=== PATIENT | male | born 1950 | race Caucasian/White ===

== ENCOUNTER 2017-05-07 00:31 | Emergency (ER) | payer MEDICARE, OTHER ==
[~2017-05-07] VITALS: Ht 170.2 cm; Wt 104.5 kg
[2017-05-07 01:50] LABS: BASO % 0.4 % (0.0-1.0); EOS # 0.1 10^3/uL (0.0-0.50); EOS % 1.9 % (0.0-3.0); IMMATURE GRANULOCYTE % 0.6 % (0-0); LYMPH % 21.8 % (24.0-44.0); MEAN CORPUSCULAR HEMOGLOBIN 30.7 pg (27.0-33.0); MEAN CORPUSCULAR HGB CONC 34.4 g/dl (32.0-36.5); MEAN CORPUSCULAR VOLUME 89.3 fl (80.0-96.0); MONO # 0.5 10^3/uL (0.0-0.8); MONO % 10.3 % (0.0-5.0); NEUTROPHILS # 3.1 10^3/uL (1.8-7.7); PLATELET COUNT, AUTOMATED 138 10^3/uL (150-450); RED CELL DISTRIBUTION WIDTH 13.5 % (11.5-14.5); WHITE BLOOD COUNT 4.8 10^3/uL (4.0-10.0)
[2017-05-07 02:09] LABS: ANION GAP 8 MEQ/L (8-16); BLOOD UREA NITROGEN 22 MG/DL (7-18); CALCIUM LEVEL 9.2 MG/DL (8.8-10.2); CARBON DIOXIDE LEVEL 26 MEQ/L (21-32); CHLORIDE LEVEL 102 MEQ/L (98-107); CREATININE FOR GFR 1.26 MG/DL (0.70-1.30); GLOMERULAR FILTRATION RATE > 60.0 (>49); GLUCOSE, FASTING 301 MG/DL (80-110); POTASSIUM SERUM 3.7 MEQ/L (3.5-5.1); SODIUM LEVEL 136 MEQ/L (136-145)
--- NOTE | 2017-05-07 03:50 | REPUSA ---
CLINICAL HISTORY: Dizziness. TECHNIQUE: Multiple axial brain CT scan sections were obtained from base to vertex without contrast a dministration. COMMENTS: The study shows normal configuration of sella turcica. There are no intra or extra-axial collections. There is no mass effect or midline shift. There is no evidence of hematoma formation. No hydrocephal us is present. No abnormal calcifications are noted. No significant abnormalities are seen either in the posterior fossa or supratentorial compartment. The sinuses and mastoid air cells are patent. IMPRESSION: No evidence of acute intracranial pathology. Thank you for your kind referral of this patient.
[2017-05-07 05:08] VITALS: BP 142/80
--- NOTE | 2017-05-07 08:13 | ECGEPIP ---
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
== END 2017-05-07 05:15 | disposition home or self-care (01) ==
LOC: M ED 00:31
DX: R07.89 Other chest pain (principal); R42 Dizziness and giddiness; I25.10 Atherosclerotic heart disease of native coronary artery without angina pectoris; I25.2 Old myocardial infarction

== ENCOUNTER 2018-05-24 23:01 | Emergency (ER) | payer MEDICARE, OTHER ==
[2018-05-24] MEDS: NS 1,000 ML IV (23:30)
[2018-05-24 23:36] LABS: BASO % 0.4 % (0.0-1.0); EOS # 0.2 10^3/uL (0.0-0.50); EOS % 3.4 % (0.0-3.0); HEMATOCRIT 40.3 % (42.0-52.0); HEMOGLOBIN 13.2 g/dl (13.5-17.5); IMMATURE GRANULOCYTE % 0.8 % (0-3.0); LYMPH % 20.2 % (24.0-44.0); MEAN CORPUSCULAR HEMOGLOBIN 30.6 pg (27.0-33.0); MEAN CORPUSCULAR HGB CONC 32.8 g/dl (32.0-36.5); MEAN CORPUSCULAR VOLUME 93.5 fl (80.0-96.0); MONO # 0.7 10^3/uL (0.0-0.8); MONO % 14.6 % (0.0-5.0); NEUTROPHILS % 60.6 % (36.0-66.0); PLATELET COUNT, AUTOMATED 138 10^3/uL (150-450); RED BLOOD COUNT 4.31 10^6/uL (4.30-6.10); RED CELL DISTRIBUTION WIDTH 13.4 % (11.5-14.5)
[2018-05-24 23:55] LABS: BEDSIDE GLUCOSE 292 MG/DL (80-115)
[2018-05-25] MEDS: dexameTHASONE 20 MG/5 ML VIAL (J1100) IV
[2018-05-25 00:06] LABS: ANION GAP 7 MEQ/L (8-16); BLOOD UREA NITROGEN 27 MG/DL (7-18); CALCIUM LEVEL 8.9 MG/DL (8.8-10.2); CARBON DIOXIDE LEVEL 25 MEQ/L (21-32); CHLORIDE LEVEL 103 MEQ/L (98-107); CPK CREATINE PHOSPHOKINASE 224 U/L (39-308); CREATININE FOR GFR 1.55 MG/DL (0.70-1.30); GLOMERULAR FILTRATION RATE 47.7 (>49); GLUCOSE, FASTING 328 MG/DL (70-100); NT-PRO BNP 1187 PG/ML (<125); POTASSIUM SERUM 4.7 MEQ/L (3.5-5.1); SODIUM LEVEL 135 MEQ/L (136-145); TROPONIN I 0.02 NG/ML (< 0.10)
[2018-05-25] MEDS: HumuLIN R (REGULAR) INSULIN (NovoLIN R) **100U/ML** PER UNIT IV (00:15)
[2018-05-25] MEDS: IPRATROPIUM 0.5MG/ALBUTEROL 2.5MG INH SOL UD 3ML (DUONEB)(J7620) NEB ×2 (00:19→01:03)
[2018-05-25] MEDS: FUROSEMIDE 100 MG/10 ML VIAL (J1940) IV (00:30)
== END 2018-05-25 02:35 | disposition home or self-care (01) ==
LOC: M ED 05-25 02:35
DX: I50.9 Heart failure, unspecified (principal); R94.31 Abnormal electrocardiogram [ECG] [EKG]; I11.0 Hypertensive heart disease with heart failure; I25.10 Atherosclerotic heart disease of native coronary artery without angina pectoris; Z95.1 Presence of aortocoronary bypass graft
CPT/HCPCS: J1100

== ENCOUNTER → 2018-09-13 | Outpatient (REF) | payer MEDICARE ==
[~2018-09-13] MED LIST: LASI40TA9 PO
[2018-09-13 16:41] LABS: BASO % 0.6 % (0.0-1.0); EOS # 0.2 10^3/uL (0.0-0.50); EOS % 2.6 % (0.0-3.0); HEMATOCRIT 46.2 % (42.0-52.0); HEMOGLOBIN 15.6 g/dl (13.5-17.5); LYMPH # 1.1 10^3/uL (1.5-4.5); LYMPH % 17.9 % (24.0-44.0); MEAN CORPUSCULAR HEMOGLOBIN 30.5 pg (27.0-33.0); MEAN CORPUSCULAR HGB CONC 33.8 g/dl (32.0-36.5); MEAN CORPUSCULAR VOLUME 90.2 fl (80.0-96.0); MONO # 0.6 10^3/uL (0.0-0.8); MONO % 9.8 % (0.0-5.0); NEUTROPHILS # 4.3 10^3/uL (1.8-7.7); NEUTROPHILS % 68.5 % (36.0-66.0); PLATELET COUNT, AUTOMATED 156 10^3/uL (150-450); RED BLOOD COUNT 5.12 10^6/uL (4.30-6.10); WHITE BLOOD COUNT 6.3 10^3/uL (4.0-10.0)
[2018-09-13 16:55] LABS: ALBUMIN 4.1 GM/DL (3.2-5.2); CALCIUM LEVEL 9.1 MG/DL (8.8-10.2); CHOLESTEROL RISK RATIO 4.483 (<5); CREATININE FOR GFR 1.53 MG/DL (0.70-1.30); GLOMERULAR FILTRATION RATE 48.4 (>49); POTASSIUM SERUM 4.6 MEQ/L (3.5-5.1); THYROID STIMULATING HORMONE 0.295 uIU/ML (0.358-3.740); TOTAL PROTEIN 7.2 GM/DL (6.4-8.2)
[2018-09-13 17:03] LABS: HEMOGLOBIN A1c 9.2 %
[2018-09-13 17:07] LABS: CREATININE, URINE 95.1 MG/DL; MALB URINE SIEMENS 53.6 MG/L; MAU/CREAT RATIO 56.3 MCG/MG (0.0-30.0)
== END ==
LOC: M SFHCLERA 10:11
PROVIDERS: ATTEND Family Medicine
DX: E11.65 Type 2 diabetes mellitus with hyperglycemia (principal)

== ENCOUNTER → 2018-12-19 | Outpatient (REF) | payer MEDICARE ==
[2018-12-19 12:56] LABS: CALCIUM LEVEL 8.8 MG/DL (8.8-10.2); CREATININE FOR GFR 1.47 MG/DL (0.70-1.30); GLOMERULAR FILTRATION RATE 50.7 (>49); POTASSIUM SERUM 4.3 MEQ/L (3.5-5.1)
== END ==
LOC: M SFHCLERA 10:17
PROVIDERS: ATTEND Family Medicine
DX: E11.65 Type 2 diabetes mellitus with hyperglycemia (principal)

== ENCOUNTER → 2019-04-16 | Outpatient (REF) | payer MEDICARE ==
[2019-04-16 12:25] LABS: CALCIUM LEVEL 8.9 MG/DL (8.8-10.2); CREATININE FOR GFR 1.36 MG/DL (0.70-1.30); GLOMERULAR FILTRATION RATE 55.3 (>49); POTASSIUM SERUM 4.4 MEQ/L (3.5-5.1)
[2019-04-16 13:47] LABS: HEMOGLOBIN A1c 6.4 %
== END ==
LOC: M SFHCLERA 08:00
PROVIDERS: ATTEND Family Medicine
DX: E11.65 Type 2 diabetes mellitus with hyperglycemia (principal)

== ENCOUNTER → 2019-08-05 | Outpatient (REF) | payer MEDICARE ==
[2019-08-05 12:55] LABS: BASO % 0.4 % (0.0-1.0); EOS # 0.3 10^3/uL (0.0-0.5); EOS % 3.9 % (0.0-3.0); HEMATOCRIT 46.5 % (42.0-52.0); HEMOGLOBIN 14.9 g/dl (13.5-17.5); LYMPH # 1.4 10^3/uL (1.5-5.0); LYMPH % 19.6 % (24.0-44.0); MEAN CORPUSCULAR HEMOGLOBIN 28.7 pg (27.0-33.0); MEAN CORPUSCULAR VOLUME 89.4 fl (80.0-96.0); MONO # 0.7 10^3/uL (0.0-0.8); NEUTROPHILS # 4.5 10^3/uL (1.5-8.5); NEUTROPHILS % 64.7 % (36.0-66.0); PLATELET COUNT, AUTOMATED 177 10^3/uL (150-450)
[2019-08-05 13:11] LABS: ALBUMIN 3.7 GM/DL (3.2-5.2); BILIRUBIN,TOTAL 0.8 MG/DL (0.2-1.0); CALCIUM LEVEL 8.6 MG/DL (8.8-10.2); CREATININE FOR GFR 1.41 MG/DL (0.70-1.30); GLOMERULAR FILTRATION RATE 53.1 (>49); POTASSIUM SERUM 4.8 MEQ/L (3.5-5.1); THYROID STIMULATING HORMONE 0.028 uIU/ML (0.358-3.740); TOTAL PROTEIN 6.6 GM/DL (6.4-8.2)
[2019-08-05 13:14] LABS: CREATININE, URINE 90.2 MG/DL; MALB URINE SIEMENS 13.2 MG/L; MAU/CREAT RATIO 14.6 MCG/MG (0.0-30.0)
[2019-08-05 13:27] LABS: HEMOGLOBIN A1c 7.2 %
== END ==
LOC: M SFHCLERA 07:36
PROVIDERS: ATTEND Family Medicine
DX: E11.65 Type 2 diabetes mellitus with hyperglycemia (principal)

== ENCOUNTER 2019-09-03 12:10 | Observation (INO) | payer MEDICARE ==
[~2019-09-03] VITALS: Ht 170.2 cm; Wt 93.3 kg
[2019-09-03] MEDS ORDERED: GLIP5TAB8 PO (12:40)
[2019-09-03] MEDS ORDERED: LANTINJ4 SC (12:40)
[2019-09-03] MEDS ORDERED: NITR0.4S14 SL (12:40)
[2019-09-03] MEDS ORDERED: VALS40TA9 PO (12:40)
[2019-09-03] MEDS ORDERED: ISOS60TA2 PO (12:40)
[2019-09-03] MEDS ORDERED: LEVO175T2 PO (12:40)
[2019-09-03] MEDS ORDERED: ECOT81TA5 PO (12:40)
[2019-09-03 12:41] LABS: BASO % 0.5 % (0.0-1.0); EOS # 0.2 10^3/uL (0.0-0.5); EOS % 2.6 % (0.0-3.0); HEMATOCRIT 46.8 % (42.0-52.0); HEMOGLOBIN 15.8 g/dl (13.5-17.5); LYMPH # 1.2 10^3/uL (1.5-5.0); LYMPH % 15.7 % (24.0-44.0); MEAN CORPUSCULAR HEMOGLOBIN 29.3 pg (27.0-33.0); MEAN CORPUSCULAR HGB CONC 33.8 g/dl (32.0-36.5); MEAN CORPUSCULAR VOLUME 86.8 fl (80.0-96.0); MONO # 0.8 10^3/uL (0.0-0.8); MONO % 10.7 % (0.0-5.0); NEUTROPHILS # 5.1 10^3/uL (1.5-8.5); NEUTROPHILS % 69.7 % (36.0-66.0); PLATELET COUNT, AUTOMATED 168 10^3/uL (150-450); RED BLOOD COUNT 5.39 10^6/uL (4.30-6.10); WHITE BLOOD COUNT 7.3 10^3/uL (4.0-10.0)
[2019-09-03 13:15] LABS: CK-MB VALUE MASS 3.1 NG/ML (<3.6); CREATININE FOR GFR 1.58 MG/DL (0.70-1.30); GLOMERULAR FILTRATION RATE 46.5 (>49); MB/CK RELATIVE INDEX 2.7 (< OR =4); TROPONIN I 0.03 NG/ML (< 0.10)
[2019-09-03] MEDS ORDERED: ASPIRIN 81 MG CHEW TABLET PO ONE (13:45)
--- NOTE | 2019-09-03 13:55 | REP ---
Clinical: Chest pain . Comparison: 11/02/2013 . Findings: The mediastinum and cardiac silhouette are stable and cardiomegaly with sternotomy again noted. The lung gillette are clear without acute consolidation, effusion, or pneumothorax. Skeletal structures are intact. Impression: No acute cardiopulmonary process appreciated. No focal consolidation or effusion. Electronically Signed by Kenton Caceres MD 09/03/2019 01:47 P
[2019-09-03 13:58] LABS: ALBUMIN 4.2 GM/DL (3.2-5.2); BILIRUBIN,DIRECT 0.3 MG/DL (0.0-0.2); BILIRUBIN,TOTAL 1.1 MG/DL (0.2-1.0)
[2019-09-03] MEDS ORDERED: CLOPIDOGREL 300 MG TAB (PLAVIX) PO ONE (15:00)
[2019-09-03] MEDS ORDERED: ENOXAPARIN 30 MG/0.3 ML SYR (J1650) IV ONE (15:00)
[2019-09-03] MEDS ORDERED: ENOXAPARIN 100MG/1ML SYRINGE (J1650) SC SCH (15:00)
[2019-09-03] MEDS ORDERED: ATOR80TA59 PO (15:31)
[2019-09-03] MEDS ORDERED: METO25TA4 PO (15:31)
[2019-09-03] MEDS ORDERED: FURO40TA2 PO (15:31)
[2019-09-03] MEDS ORDERED: INSUHUMDS SC (15:31)
[2019-09-03] MEDS ORDERED: FISH1000 PO (15:31)
[2019-09-03] MEDS ORDERED: LEVO150T42 PO (15:31)
[2019-09-03] MEDS ORDERED: BYDU1INJ SC (15:31)
[2019-09-03 15:34] LABS: CHOLESTEROL RISK RATIO 4.035 (<5)
[2019-09-03 15:48] VITALS: BP 148/88
[2019-09-03] MEDS ORDERED: ENOXAPARIN 30 MG/0.3 ML SYR (J1650) SC ONE (19:00)
[2019-09-03] MEDS ORDERED: ENOXAPARIN 60 MG/0.6 ML SYR (J1650) SC ONE (19:00)
--- NOTE | 2019-09-03 20:28 | ECGEPIP ---
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
[2019-09-03] MEDS ORDERED: ATORVASTATIN 20 MG TAB PO SCH (21:00)
[2019-09-03] MEDS ORDERED: HumaLOG INSULIN (NovoLOG) PER UNIT SC SCH (21:00)
[2019-09-03 22:00] VITALS: BP 107/62
[2019-09-03] MEDS ORDERED: GLUCAGON FOR INJ 1 MG VIAL (J1610) SC PRN (23:00)
[2019-09-03] MEDS ORDERED: GLUCOSE 4 GM CHEW TABLET PO PRN (23:00)
[2019-09-03] MEDS ORDERED: NITROGLYCERIN 0.4 MG SUBL TABLET SL PRN (23:00)
[2019-09-03] MEDS ORDERED: DEXTROSE 50% 50 ML SYRINGE IV PRN (23:00)
[2019-09-03] MEDS: METOPROLOL TART 25 MG TABLET PO SCH (23:24)
--- NOTE | 2019-09-03 23:30 | HPEPDOC ---
General Date of Admission Sep 03, 2019 at 12:11 Date of Service: Sep 03, 2019 Primary Care Physician: HILARIO MITCHELL MD Other Providers Cardiology-Dr. Carter Attending Physician: HILARIO MACIAS DO Chief Complaint The patient is a 69-year-old male admitted with a reason for visit of Abnormal Ekg. Source: Patient Exam Limitations: No limitations History of Present Illness The patient reports that he had an episode of what sounds like unstable angina approximately 10 AM this morning, he did take a single dose of sublingual nitroglycerin which seemed to alleviate his chest pain, however thereafter he developed significant persistent headache, and then nausea, and one episode of vomiting. He has had other episodes of angina in the past for which he has taken nitroglycerin, none of which have caused him to have any of the above-mentioned symptoms, therefore he made the decision to come to the emergency department. Both time he was seen and evaluated in the emergency department essentially all of his symptoms have resolved, and he is feeling significantly better. Of all the investigations conducted in the ED, he only had the singular finding of inverted T waves in the lateral leads of his EKG, which is a new finding when compared to his most recent EKG in [facility] from May 2018. Of note, cardiac profile including troponins was negative. The ED physician discussed th e case with his barber apprentice Dr. Carter who felt that would be appropriate to keep the patient for at least the next 24 hours on telemetry. Home Medications Scheduled Aspirin (Ecotrin) 81 Mg Tablet.dr, 81 MG PO DAILY, (Reported) Atorvastatin Calcium (Atorvastatin Calcium) 80 Mg Tablet, 80 MG PO QHS, (Reported) Exenatide Microspheres (Bydureon) 2 Mg/0.65 Ml Pen.injctr, 2 MG SC QWEEK, (Reported) TAKES EITHER MONDAY OR MONDAY, FORGOT THIS PAST WEEKEND Furosemide (Furosemide) 40 Mg Tablet, 40 MG PO DAILY, (Reported) Glipizide (Glipizide) 5 Mg Tablet, 5 MG PO BID, (Reported) Insulin Glargine,Hum.rec.anlog (Lantus Solostar) 100 Unit/1 Ml Insuln.pen, 40 UNITS SC DAILY, (Reported) Insulin Human Lispro (Humalog) 100 Unit/1 Ml Vial, 1 DOSE SC ACHS, (Reported) PER SLIDING SCALE Isosorbide Mononitrate (Isosorbide Mononitrate ER) 60 Mg Tab.er.24h, 60 MG PO DAILY, (Reported) Levothyroxine Sodium (Levoxyl) 150 Mcg Tablet, 150 MCG PO DAILY, (Reported) Metoprolol Tartrate (Metoprolol Tartrate) 25 Mg Tablet, 25 MG PO BID, (Reported) [place]-3 Fatty Acids/Fish Oil (Fish Oil 1,000 mg Capsule) 1 Each Capsule, 1,000 MG PO DAILY, (Reported) Valsartan (Valsartan) 40 Mg Tablet, 40 MG PO DAILY, (Reported) Scheduled PRN Nitroglycerin (Nitroglycerin) 0.4 Mg Tab.subl, 0.4 MG SL NITRO PRN for CHEST PAIN, (Reported) Allergies Coded Allergies: No Known Allergies (Unverified , 05/07/17) Past Medical History Medical History Diabetes mellitus type 2, on insulin therapy Coronary artery disease status post bypass and stenting Chronic diastolic CHF History of alcoholism, last drink of alcohol 1986 Hypothyroidism Dyslipidemia Essential hypertension History of stable angina pectoris Surgical History Cholecystectomy Multiple heart catheterizations Angioplasty 1986 Cardiac bypass 1999 Coronary artery stent in 2009 Social History * Smoker: non-smoker Alcohol: Denies Drugs: denies Recent Travel/Sick Contacts: Denies: Recent travel, Recent sick contacts Psychosocial History: No pertinent psych hx A-FIB/CHADSVASC A-FIB History Current/History of A-Fib/PAF?: No Review of Systems Constitutional: Denies: Chills, Fever, Malaise, Night Sweats ENT: Reports: Head Aches; Denies: Ear Pain, Dysphagia Skin: Denies: Rash, Lesions, Breakdown Pulmonary: Denies: Dyspnea, Cough Cardiovascular: Reports: Chest Pain; Denies: Palpitations, Orthopnea, Lt Headedness Gastrointestinal: Reports: Nausea, Vomiting; Denies: Abdominal Pain, Diarrhea Hematologic: Denies: Bruising, Bleeding Excessively Neurological: Denies: Weakness, Numbness, Change in speech, Confusion Psych: Reports: Mood Normal; Denies: Depression, Memory Issues Physical Examination General Exam: Positive: Alert, No Acute Distress Eye Exam: Positive: Conjunctiva & lids normal, EOMI; Negative: Sclera icteric ENT Exam: Positive: Atraumatic, Mucous membr. moist/pink, Pharynx Normal Neck Exam: Positive: Supple; Negative: JVD, thyromegaly Chest Exam: Positive: Clear to auscultation, Normal air movement Heart Exam: Positive: Rate Normal, Regular Rhythm, Normal S1, Normal S2, Murmurs (3/6 systolic murmur) Telemetry: Positive: No significant arrhythmia Abdomen Exam: Positive: Normal bowel sounds, Soft; Negative: Tenderness, Hepatospenomegaly Extremity Exam: Positive: Normal pulses; Negative: Clubbing, Cyanosis, Edema Skin Exam: Positive: Nl turgor and temperature; Negative: Breakdown, Lesion Neuro Exam: Positive: Normal Speech, Cranial Nerves 3-12 NL, Reflexes 2+ Psych Exam: Positive: Mental status NL, Mood NL, Oriented x 3 Vital Signs Vital Signs Date Time Temp Pulse Resp B/P (MAP) Pulse Ox O2 Delivery O2 Flow Rate FiO2 09/03/19 15:48 97.8 98 18 148/88 (108) 100 09/03/19 15:30 Room Air Laboratory Data Labs 24H Laboratory Tests 2 09/03/19 12:14: Anion Gap 10, Glomerular Filtration Rate 46.5L, Calcium Level 9.0, Total Bilirubin 1.1H, Direct Bilirubin 0.3H, Aspartate Amino Transf (AST/SGOT) 23, Alanine Aminotransferase (ALT/SGPT) 33, Alkaline Phosphatase 102, Total Creatine Kinase 115, Creatine Kinase MB 3.1, Creatine Kinase MB Relative Index 2.70, Troponin I 0.03, Total Protein 7.0, Albumin 4.2, Albumin/Globulin Ratio 1.50, Triglycerides Level 126, Total Cholesterol 113, LDL Cholesterol 60, Non-HDL Cholesterol (LDL + VLDL) 85, Total HDL Cholesterol 28L, Cholesterol/HDL Ratio 4.035, Lipase 366 09/03/19 12:27: Immature Granulocyte % (Auto) 0.8, Neutrophils (%) (Auto) 69.7H, Lymphocytes (%) (Auto) 15.7L, Monocytes (%) (Auto) 10.7H, Eosinophils (%) (Auto) 2.6, Basophils (%) (Auto) 0.5, Neutrophils # (Auto) 5.1, Lymphocytes # (Auto) 1.2L, Monocytes # (Auto) 0.8, Eosinophils # (Auto) 0.2, Basophils # (Auto) 0.0, Nucleated Red Blood Cells % (auto) 0.0 09/03/19 13:31: Bedside Glucose (Misc Panel) 197H CBC/BMP Laboratory Tests 09/03/19 12:14 09/03/19 12:27 Problems (1) Abnormal EKG Status: Acute Problem Text: Will admit to [facility] with telemetry for cardiac monitoring. Since the initial troponins are negative, he would not qualify for the diagnosis of NSTEMI, but with what appears to be a new finding of inverted T waves in the lateral leads and given his significant cardiac history, the benefits of initiating treatment sooner would outweigh the risks of delaying therapy (if they become positive on repeat lab work), therefore will start him on aspirin, Plavix, and subcutaneous Lovenox empirically at this time. Cardiac risk profile ordered every 6H x3. Otherwise, we'll continue her home regimen of antihypertensive and cardiac medications without change at this time. (2) Atypical chest pain Status: Resolved Problem Text: Now resolved (3) DM2 (diabetes mellitus, type 2) Status: Chronic Problem Text: Continue with home dose of long-acting insulin. Sliding scale insulin per protocol while inpatient. (4) CAD S/P percutaneous coronary angioplasty Status: Chronic Problem Text: Will receive aspirin 325 mg by mouth daily while inpatient, lik may may return back to 81 mg daily upon discharge (5) Diastolic CHF, chronic Status: Chronic Problem Text: Continue with home doses of metoprolol, valsartan, furosemide, and isosorbide mononitrate (6) Hypothyroid Status: Chronic Problem Text: Continue home dose of Synthroid (7) Dyslipidemia Status: Chronic Problem Text: Allready on high intensity statin, continue home dose of atorvastatin 80 mg daily at bedtime (8) HTN (hypertension) Status: Chronic Problem Text: Continue home medications as listed above (9) History of heart bypass surgery Status: Chronic Plan / VTE VTE Prophylaxis Ordered?: Yes (Lovenox) HILARIO MACIAS DO Sep 03, 2019 23:30
[2019-09-04 06:00] VITALS: BP 131/79
[2019-09-04] MEDS ORDERED: LEVOTHYROXINE 150MCG TABLET (0.15MG) PO SCH (06:00)
[2019-09-04] MEDS ORDERED: ENOXAPARIN 100MG/1ML SYRINGE (J1650) SC SCH ×2 (07:00→15:00)
[2019-09-04] MEDS ORDERED: glipiZIDE (GLUCOTROL) 5 MG TAB PO SCH (07:30)
[2019-09-04] MEDS: HumaLOG INSULIN (NovoLOG) PER UNIT SC SCH ×2 (07:30→12:25)
[2019-09-04 08:26] VITALS: BP 131/82
[2019-09-04] MEDS: METOPROLOL TART 25 MG TABLET PO SCH (08:27)
[2019-09-04] MEDS ORDERED: VALSARTAN 40MG TABLET (DIOVAN) PO SCH (09:00)
[2019-09-04] MEDS ORDERED: CLOPIDOGREL 75 MG TAB PO SCH (09:00)
[2019-09-04] MEDS ORDERED: LEVEMIR (INSULIN DETEMIR) 1 UNITS/0.01ML SC SCH (09:00)
[2019-09-04] MEDS ORDERED: ASPIRIN ENTERIC 325 MG TAB PO SCH (09:00)
[2019-09-04] MEDS ORDERED: ISOSORBIDE MON. (IMDUR) 60 MG XR TAB PO SCH (09:00)
[2019-09-04] MEDS ORDERED: FUROSEMIDE 40 MG TAB PO SCH (09:00)
[2019-09-04 10:23] LABS: CHOLESTEROL RISK RATIO 3.407 (<5)
--- NOTE | 2019-09-04 19:23 | DS.PDOC ---
Discharge Summary General Date of Admission Sep 03, 2019 at 12:11 Date of Discharge 09/04/19 Attending Physician: OSMANI YOUSSEF MD Discharge Summary PROCEDURES PERFORMED DURING STAY: None. ADMITTING DIAGNOSES: 1. , Chest pain, rule out ACS. DISCHARGE DIAGNOSES: 1. , Chest pain, rule out ACS. COMPLICATIONS/CHIEF COMPLAINT: Abnormal Ekg. HISTORY OF PRESENT ILLNESS: 69-year-old male with an extensive cardiac history, status post stent placement, obstructive sleep apnea, noncompliant with CPAP was admitted for chest pain, rule out ACS. Patient reports having chest pain yesterday after working on his car and inhaling fumes, used nitroglycerin 2 and subsequently developed a headache with dizziness. Patient had some T-wave inversions which are possibly new, troponin was negative, admitted overnight for telemetry monitoring. Patient seen the morning, asymptomatic, comfortable, no further episodes of chest pain, dizziness or headache. Patient is clinically and hemodynamically stable for discharge and outpatient follow-up with livestock caretaker, video editor and PCP. The importance of treating his sleep apnea was discussed in great detail with the patient, has not had a sleep study many years, does not use CPAP due to poor mask fitting, recommend repeat sleep study with appropriate mask fitting. HOSPITAL COURSE: As above. DISCHARGE MEDICATIONS: Please see below. ALLERGIES: Please see below. PPHYSICAL EXAMINATION: VITAL SIGNS: Please see below. GENERAL: No distress HEENT: Normocephalic, atraumatic, moist mucous membranes NECK: Supple CARDIOVASCULAR EXAMINATION: S1, S2, no murmurs RESPIRATORY EXAMINATION: Clear to auscultation, no wheezing ABDOMINAL EXAMINATION: Soft, nontender, nondistended, positive bowel sounds EXTREMITIES: Range of motion intact SKIN: No rash NEUROLOGICAL EXAMINATION: Alert and oriented 3, no focal deficits PSYCHIATRIC EXAMINATION: Calm and cooperative LABORATORY DATA: Please see below. PROGNOSIS: Fair ACTIVITY: As tolerated. DIET: Cardiac DISCHARGE PLAN: Follow-up with livestock caretaker, video editor and PCP in 1-2 weeks DISPOSITION: 01 Home, Self-Care. DISCHARGE INSTRUCTIONS: 1. As above. DISCHARGE CONDITION: Stable. TIME SPENT ON DISCHARGE: Greater than 28 minutes. Vital Signs/I&Os Vital Signs Date Time Temp Pulse Resp B/P (MAP) Pulse Ox O2 Delivery O2 Flow Rate FiO2 09/04/19 08:27 72 09/04/19 08:26 131/82 09/04/19 06:00 97.0 20 96 09/03/19 15:30 Room Air I&O- Last 24 Hours up to 6 AM 09/04/19 06:00 Intake Total 1000 ml Output Total 0 ml Balance 1000 ml Laboratory Data Labs 24H Laboratory Tests 2 09/03/19 23:21: Bedside Glucose (Misc Panel) 153H 09/04/19 06:42: Bedside Glucose (Misc Panel) 86 09/04/19 09:20: Triglycerides Level 115, Total Cholesterol 92, LDL Cholesterol 42, Non-HDL Cholesterol (LDL + VLDL) 65, Total HDL Cholesterol 27L, Cholesterol/HDL Ratio 3.407 09/04/19 11:45: Bedside Glucose (Misc Panel) 189H FSBS Laboratory Tests Test 09/03/19 23:21 09/04/19 06:42 09/04/19 11:45 Range/Units Bedside Glucose (Misc Panel) 153 86 189 80-115 MG/DL Discharge Medications Scheduled Aspirin (Ecotrin) 81 Mg Tablet.dr, 81 MG PO DAILY, (Reported) Atorvastatin Calcium (Atorvastatin Calcium) 80 Mg Tablet, 80 MG PO QHS, (Reported) Exenatide Microspheres (Bydureon) 2 Mg/0.65 Ml Pen.injctr, 2 MG SC QWEEK, (Reported) TAKES EITHER MONDAY OR MONDAY, FORGOT THIS PAST WEEKEND Furosemide (Furosemide) 40 Mg Tablet, 40 MG PO DAILY, (Reported) Glipizide (Glipizide) 5 Mg Tablet, 5 MG PO BID, (Reported) Insulin Glargine,Hum.rec.anlog (Lantus Solostar) 100 Unit/1 Ml Insuln.pen, 40 UNITS SC DAILY, (Reported) Insulin Human Lispro (Humalog) 100 Unit/1 Ml Vial, 1 DOSE SC ACHS, (Reported) PER SLIDING SCALE Isosorbide Mononitrate (Isosorbide Mononitrate ER) 60 Mg Tab.er.24h, 60 MG PO DAILY, (Reported) Levothyroxine Sodium (Levoxyl) 150 Mcg Tablet, 150 MCG PO DAILY, (Reported) Metoprolol Tartrate (Metoprolol Tartrate) 25 Mg Tablet, 25 MG PO BID, (Reported) [place]-3 Fatty Acids/Fish Oil (Fish Oil 1,000 mg Capsule) 1 Each Capsule, 1,000 MG PO DAILY, (Reported) Valsartan (Valsartan) 40 Mg Tablet, 40 MG PO DAILY, (Reported) Scheduled PRN Nitroglycerin (Nitroglycerin) 0.4 Mg Tab.subl, 0.4 MG SL NITRO PRN for CHEST PAIN, (Reported) Allergies Coded Allergies: No Known Allergies (Unverified , 05/07/17) OSMANI YOUSSEF MD Sep 04, 2019 19:23
== END 2019-09-04 14:53 | disposition home or self-care (01) ==
LOC: M ED 12:10 → M ED INP 12:11 → ENRESERV 15:27 → M MSPAV 15:47
PROVIDERS: ADMIT Neuromusculoskeletal Medicine & OMM; ATTEND Neuromusculoskeletal Medicine & OMM
DX: R07.89 Other chest pain (principal); I20.9 Angina pectoris, unspecified; I25.10 Atherosclerotic heart disease of native coronary artery without angina pectoris; G47.33 Obstructive sleep apnea (adult) (pediatric); E11.9 Type 2 diabetes mellitus without complications; I11.9 Hypertensive heart disease without heart failure; I50.32 Chronic diastolic (congestive) heart failure; Z79.4 Long term (current) use of insulin; Z95.1 Presence of aortocoronary bypass graft; Z98.61 Coronary angioplasty status; E03.9 Hypothyroidism, unspecified; E78.5 Hyperlipidemia, unspecified; Z79.82 Long term (current) use of aspirin; Z79.899 Other long term (current) drug therapy
CPT/HCPCS: 36415; 71045; 80048; 80061; 80076; 82550; 82553; 83690; 84484; 85025; 93005; 93041; 94760; 96372; 99285; G0378; J1650

== ENCOUNTER → 2019-11-01 | Outpatient (REF) | payer MEDICARE ==
[~2019-11-01] MED LIST changes: +ATOR80TA59 PO; +BYDU1INJ SC; +ECOT81TA5 PO; +FISH1000 PO; +FURO40TA2 PO; +GLIP5TAB8 PO; +INSUHUMDS SC; +ISOS60TA2 PO; +LANTINJ4 SC; +LEVO150T42 PO; +LEVO175T2 PO; +METO25TA4 PO; +NITR0.4S14 SL; +VALS40TA9 PO
[2019-11-01 12:18] LABS: CALCIUM LEVEL 9.3 MG/DL (8.8-10.2); CHOLESTEROL RISK RATIO 3.733 (<5); CREATININE FOR GFR 1.45 MG/DL (0.70-1.30); GLOMERULAR FILTRATION RATE 51.4 (>49); POTASSIUM SERUM 4.3 MEQ/L (3.5-5.1); THYROID STIMULATING HORMONE 0.132 uIU/ML (0.358-3.740)
== END ==
LOC: M SFHCLERA 08:40
PROVIDERS: ATTEND Family Medicine
DX: E11.65 Type 2 diabetes mellitus with hyperglycemia (principal); E78.5 Hyperlipidemia, unspecified; E03.9 Hypothyroidism, unspecified

== ENCOUNTER → 2019-11-07 | Outpatient (REF) | payer MEDICARE ==
[2019-11-07 13:01] LABS: ALBUMIN 4.1 GM/DL (3.2-5.2); BILIRUBIN,TOTAL 0.8 MG/DL (0.2-1.0); CALCIUM LEVEL 9.9 MG/DL (8.8-10.2); CREATININE FOR GFR 1.57 MG/DL (0.70-1.30); GLOMERULAR FILTRATION RATE 46.9 (>49); POTASSIUM SERUM 4.9 MEQ/L (3.5-5.1); TOTAL PROTEIN 7.4 GM/DL (6.4-8.2)
== END ==
LOC: M SFHCLERA 10:13
PROVIDERS: ATTEND Family Medicine
DX: E03.9 Hypothyroidism, unspecified (principal); R17 Unspecified jaundice

== ENCOUNTER → 2019-12-19 | Outpatient (CLI) | payer MEDICARE | LOC: M PLALAB 12:43 | PROVIDERS: ATTEND Family Medicine | DX: E03.9 Hypothyroidism, unspecified (principal) ==

== ENCOUNTER → 2020-04-30 | Outpatient (CLI) | payer MEDICARE | LOC: M LABSMTC 11:36 | PROVIDERS: ATTEND Anesthesiology | DX: Z01.812 Encounter for preprocedural laboratory examination (principal); Z20.828 Contact with and (suspected) exposure to other viral communicable diseases | CPT/HCPCS: C9803; U0003 ==

== ENCOUNTER 2020-05-05 07:17 | Day surgery (SDC) | payer MEDICARE ==
[~2020-05-05] VITALS: Ht 170.2 cm; Wt 98.2 kg
[~2020-05-05 07:17] MED LIST changes: +NS 1,000 ML IV ONE
[2020-05-05] MEDS ORDERED: propofoL 200 MG/20 ML VIAL As Ordered ONE ×2 (07:49→09:02)
[2020-05-05] MEDS ORDERED: LIDOCAINE 2% 100MG/5ML SDV (FOR ANES.) As Ordered ONE (07:49)
--- NOTE | 2020-05-05 09:38 | ROOR ---
Patient Name: Navneet Ballard Procedure Date: 05/05/2020 8:16 AM Date of : 1950 Age: 70 Room: [facility] Gender: Male Note Status: Finalized Procedure: Colonoscopy Indications: High risk colon cancer surveillance: Personal history of colonic polyps Providers: Sameer Zapata MD Referring MD: Gloria Gibbs Md Requesting Provider: Medicines: Monitored Anesthesia Care Complications: No immediate complications. Procedure: Pre-Anesthesia Assessment: - Prior to the procedure, a History and Physical was performed, and patient medications and allergies were reviewed. The patient is competent. The risks and benefits of the procedure and the sedation options and risks were discussed with the patient. All questions were answered and informed consent was obtained. Patient identification and proposed procedure were verified by the physician, the nurse and the anesthesiologist in the procedure room. Mental Status Examination: alert and oriented. Airway Examination: normal oropharyngeal airway and neck mobility. Respiratory Examination: clear to auscultation. CV Examination: normal. Prophylactic Antibiotics: The patient does not require prophylactic antibiotics. Prior Anticoagulants: The patient has taken no previous anticoagulant or antiplatelet agents. ASA Grade Assessment: II - A patient with mild systemic disease. After reviewing the risks and benefits, the patient was deemed in satisfactory condition to undergo the procedure. The anesthesia plan was to use monitored anesthesia care (MAC). Immediately prior to administration of medications, the patient was re-assessed for adequacy to receive sedatives. The heart rate, respiratory rate, oxygen saturations, blood pressure, adequacy of pulmonary ventilation, and response to care were monitored throughout the procedure. The physical status of the patient was re-assessed after the procedure. The Colonoscope was introduced through the anus and advanced to the cecum, identified by appendiceal orifice and ileocecal valve. The colonoscopy was performed without difficulty. The patient tolerated the procedure well. The quality of the bowel preparation was fair except the sigmoid colon was poor. The ileocecal valve, appendiceal orifice, and rectum were photographed. Scope insertion time was 3 minutes. Scope withdrawal time was 15 minutes. The total duration of the procedure was 18 minutes. Findings: The perianal and digital rectal examinations were normal. Seven sessile polyps were found in the transverse colon and ascending colon. The polyps were 5 to 16 mm in size. These polyps were removed with a hot snare. Resection and retrieval were complete. To close a defect after polypectomy, two hemostatic clips were successfully placed. There was no bleeding at the end of the procedure. Verification of patient identification for the specimen was done by the physician and nurse using the patient's name, date and medical record number. Estimated blood loss was minimal. Multiple small and large-mouthed diverticula were found from sigmoid to transverse colon. There was no evidence of diverticular bleeding. Non-bleeding external and internal hemorrhoids were found during retroflexion. The hemorrhoids were medium-sized. A large amount of semi-liquid semi-solid stool was found from sigmoid to cecum, making visualization difficult. Lavage of the area was performed using a large amount of sterile water, resulting in incomplete clearance with fair visualization. Impression: - Seven 5 to 16 mm polyps in the transverse colon and in the ascending colon, removed with a hot snare. Resected and retrieved. Clips were placed. - Severe diverticulosis from sigmoid to transverse colon. There was no evidence of diverticular bleeding. - Non-bleeding external and internal hemorrhoids. - Stool from sigmoid to cecum. Recommendation: - Patient has a contact number available for emergencies. The signs and symptoms of potential delayed complications were discussed with the patient. Return to normal activities tomorrow. Written discharge instructions were provided to the patient. - High fiber diet. - Continue present medications. - Use fiber, for example Citrucel, Fibercon, Konsyl or Metamucil. - Await pathology results. - Repeat colonoscopy in 1 year because the bowel preparation was suboptimal and for surveillance of multiple polyps. - Telephone GI clinic for pathology results in 2 weeks. - Return to primary care physician. Sameer Zapata MD Sameer Zapata MD 05/05/2020 9:37:43 AM Electronically signed by Sameer Zapata MD Number of Addenda: 0 Note Initiated On: 05/05/2020 8:16 AM Estimated Blood Loss: Estimated blood loss was minimal.
[2020-05-05 10:26] VITALS: BP 173/97
--- NOTE | 2020-05-08 07:51 | ECGEPIP ---
[facility] Test Date: 2020-05-05 Pat Name: MARCK JOYCE Department: Room: - Gender: Male Psychiatric Assistant: : 1950 Requested By: JOSE CORTES Order Number: [id number] Reading MD: Rd Shah Measurements Intervals [place] Rate: 85 P: 36 MI: 205 QRS: 65 QRSD: 126 T: 202 QT: 406 QTc: 484 Interpretive Statements Normal sinus rhythm LA conduction disturbance? Left ventricle hypertrophy Faster rate but otherwise unchanged from 09/03/19 Electronically Signed on 05-08-2020 7:51:[address]
== END 2020-05-05 10:36 | disposition home or self-care (01) ==
LOC: M OPP 07:17
PROVIDERS: ATTEND Internal Medicine Gastroenterology
DX: Z86.010 Personal history of colon polyps (principal); K63.5 Polyp of colon; K64.8 Other hemorrhoids; K57.30 Diverticulosis of large intestine without perforation or abscess without bleeding; Z09 Encounter for follow-up examination after completed treatment for conditions other than malignant neoplasm; I51.9 Heart disease, unspecified; I25.9 Chronic ischemic heart disease, unspecified; E03.9 Hypothyroidism, unspecified; Z79.4 Long term (current) use of insulin; Z79.82 Long term (current) use of aspirin; Z79.899 Other long term (current) drug therapy; Z95.3 Presence of xenogenic heart valve

== ENCOUNTER → 2020-09-28 | Outpatient (REF) | payer MEDICARE ==
[~2020-09-28] MED LIST changes: +ISOS1TAB36 PO; -ISOS60TA2 PO; -NS 1,000 ML IV ONE
[2020-09-28 10:56] LABS: BILIRUBIN,TOTAL 1.1 MG/DL (0.2-1.0); CALCIUM LEVEL 9.3 MG/DL (8.8-10.2); CHOLESTEROL RISK RATIO 3.7 (<5); CREATININE FOR GFR 1.47 MG/DL (0.70-1.30); GLOMERULAR FILTRATION RATE 50.4 (>42); POTASSIUM SERUM 4.7 MEQ/L (3.5-5.1); THYROID STIMULATING HORMONE 2.45 uIU/ML (0.358-3.740); TOTAL PROTEIN 6.8 GM/DL (6.4-8.2)
[2020-09-28 11:11] LABS: HEMOGLOBIN A1c 6.5 %
== END ==
LOC: M SFHCLERA 08:43
PROVIDERS: ATTEND Family Medicine
DX: E11.9 Type 2 diabetes mellitus without complications (principal); E03.9 Hypothyroidism, unspecified; E78.5 Hyperlipidemia, unspecified

== ENCOUNTER 2021-01-04 18:52 | Inpatient (IN) | payer MEDICARE ==
[~2021-01-04] VITALS: Ht 170.2 cm; Wt 105.8 kg
[2021-01-04 19:31] LABS: BASO % 0.4 % (0.0-1.0); EOS % 0.4 % (0.0-3.0); HEMATOCRIT 48.4 % (42.0-52.0); LYMPH # 0.6 10^3/uL (1.5-5.0); LYMPH % 8.3 % (24.0-44.0); MEAN CORPUSCULAR HEMOGLOBIN 29.4 pg (27.0-33.0); MEAN CORPUSCULAR HGB CONC 33.1 g/dl (32.0-36.5); MEAN CORPUSCULAR VOLUME 88.8 fl (80.0-96.0); MONO # 0.5 10^3/uL (0.0-0.8); MONO % 6.2 % (2.0-8.0); NEUTROPHILS # 6.2 10^3/uL (1.5-8.5); NEUTROPHILS % 83.8 % (36.0-66.0); PLATELET COUNT, AUTOMATED 133 10^3/uL (150-450); RED BLOOD COUNT 5.45 10^6/uL (4.30-6.10); WHITE BLOOD COUNT 7.4 10^3/uL (4.0-10.0)
--- NOTE | 2021-01-04 19:39 | REP ---
INDICATION: CHEST PAIN. COMPARISON: Comparison portable chest x-ray September 03, 2019. TECHNIQUE: Portable upright AP chest radiograph. FINDINGS: Median sternotomy wires are noted. EKG electrodes are seen. Mild cardiomegaly is observed unchanged. Pulmonary vasculature is cephalized as before. The pleural angles are sharp. No acute bony abnormality. Oxygen delivery tubing is visible.. IMPRESSION: Cardiomegaly and vascular cephalization. Prior sternotomy. No pleural effusion is seen.. <Electronically signed by Gerry Maldonado > 01/04/211934
[2021-01-04 19:51] LABS: INR 1.17; PARTIAL THROMBOPLASTIN TIME 24.6 SECONDS (24.2-38.5); PROTHROMBIN TIME 15.2 SECONDS (12.5-14.3)
[2021-01-04 20:01] LABS: BILIRUBIN,DIRECT 0.4 MG/DL (0.0-0.2); BILIRUBIN,TOTAL 1.5 MG/DL (0.2-1.0); THYROID STIMULATING HORMONE 2.85 uIU/ML (0.358-3.740); TOTAL PROTEIN 6.9 GM/DL (6.4-8.2)
[2021-01-04 20:30] LABS: CARBOXYHEMOGLOBIN 1.8 % (0.0-1.5); VENOUS BASE EXCESS -3.7 (-2.0-2.0); VENOUS HCO3 21.6 MEQ/L (23.0-27.0); VENOUS O2 SATURATION 85.4 % (60.0-80.0); VENOUS PARTIAL PRESSURE O2 51.1 mmHg (30.0-50.0); VENOUS STANDARD HCO3 21.1 MEQ/L; VENOUS TOTAL CO2 22.8 MEQ/L (24.0-28.0)
[2021-01-04] MEDS ORDERED: ONDANSETRON 4MG/2ML VIAL IV ONE (20:30)
[2021-01-04] MEDS ORDERED: NS 1,000 ML IV ONE (20:30)
--- NOTE | 2021-01-04 20:42 | ECGEPIP ---
[facility] - ED Test Date: 2021-01-04 Pat Name: MARCK JOYCE Department: Room: - Gender: Male Lsw: YUE : 1950 Requested By: NEERU Steward Order Number: [id number] Reading MD: Silvio Gregory Measurements Intervals [place] Rate: 72 P: 23 MD: 206 QRS: 45 QRSD: 128 T: 190 QT: 432 QTc: 473 Interpretive Statements Normal sinus rhythm Left ventricular hypertrophy with QRS widening and repolarization abnormality Borderline first degree av block Similar to tracing done 05-05-20 Electronically Signed on 01-04-2021 20:42:42 EDT by Silvio Gregory
--- NOTE | 2021-01-04 22:16 | REPVR ---
PROCEDURE INFORMATION: Exam: CT Head Without Contrast Exam date and time: 01/04/2021 9:43 PM Age: 70 years old Clinical indication: Dizziness; Additional info: New onset dizziness TECHNIQUE: Imaging protocol: Computed tomography of the head without contrast. Radiation optimization: All CT scans at this facility use at least one of these dose optimization techniques: automated exposure control; mA and/or kV adjustment per patient size (includes targeted exams where dose is matched to clinical indication); or iterative reconstruction. COMPARISON: CT Head without contrast 05/07/2017 1:43 AM FINDINGS: Brain: There is mild age related parenchymal volume loss. White matter changes are demonstrated in the subcortical, centrum semiovale and periventricular white matter consistent with chronic age related small vessel ischemic changes. There is mild diffuse cerebellar atrophy. Bilateral basal ganglia calcifications. Cerebral ventricles: The degree of ventricular dilatation is normal for age and/or degree of atrophy present. Paranasal sinuses: Visualized sinuses are unremarkable. No fluid levels. Mastoid air cells: Visualized mastoid air cells are well aerated. Vasculature: Atherosclerotic calcifications are demonstrated in the intracranial carotid arteries bilaterally as well as in the vertebral basilar system. Bones/joints: Unremarkable. No acute fracture. Soft tissues: Unremarkable. IMPRESSION: 1. There is mild age related parenchymal volume loss. White matter changes are demonstrated in the subcortical, centrum semiovale and periventricular white matter consistent with chronic age related small vessel ischemic changes. 2. The degree of ventricular dilatation is normal for age and/or degree of atrophy present. 3. There is mild diffuse cerebellar atrophy. Electronically signed by: Oscar Ace On 01/04/2021 22:15:36 PM
[2021-01-05] VITALS (7 sets, daily range): BP systolic 90–130; BP diastolic 60–82; O2SAT 97
[2021-01-05] MEDS ORDERED: MECLIZINE 25 MG TABLET PO ONE (00:45)
[2021-01-05 01:55] LABS: RSV AMPLIFICATION NEGATIVE (NEGATIVE)
--- NOTE | 2021-01-05 03:16 | REPVR ---
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 COMPARISON: CT Head without contrast 01/04/2021 9:36 PM FINDINGS: There is motion artifact. Major vascular flow voids at the skull base are preserved. No extra-axial fluid collection. No hydrocephalus. Non-specific white matter gliosis, probable chronic microvascular ischemia. Small chronic right cerebellar infarct. No midline shift or intracranial mass effect. Diffusion restriction at the right basal ganglia/gomez radiata measures 7 mm. Visualized paranasal sinuses are clear. Minimal bilateral mastoid effusions. IMPRESSION: 7 mm acute to early subacute lacunar infarct at the right basal ganglia/gomez radiata. Electronically signed by: Rio Garcia On 01/05/2021 03:15:42 AM
--- NOTE | 2021-01-05 03:18 | REPVR ---
PROCEDURE INFORMATION: Exam: MRA Head Without Contrast; Arteriography Exam date and time: 01/05/2021 2:41 AM Age: 70 years old Clinical indication: Patient HX: Vertigo for >2 years nki; Additional info: Intractable vertigo TECHNIQUE: Imaging protocol: Magnetic resonance angiography head without contrast. Exam focused on the arteries. COMPARISON: CT Head without contrast 01/04/2021 9:36 PM FINDINGS: ANTERIOR CIRCULATION: Right internal carotid artery: Intracranial segment is patent with no significant stenosis. No aneurysm. Right middle cerebral artery: No occlusion or significant stenosis. No aneurysm. Right anterior cerebral artery: No occlusion or significant stenosis. No aneurysm. Left internal carotid artery: Intracranial segment is patent with no significant stenosis. No aneurysm. Left middle cerebral artery: No occlusion or significant stenosis. No aneurysm. Left anterior cerebral artery: No occlusion or significant stenosis. No aneurysm. POSTERIOR CIRCULATION: Right vertebral artery: No occlusion or significant stenosis. No aneurysm. Left vertebral artery: Left vertebral artery is dominant. Basilar artery: No occlusion or significant stenosis. No aneurysm. Right posterior cerebral artery: No occlusion or significant stenosis. No aneurysm. Left posterior cerebral artery: No occlusion or significant stenosis. No aneurysm. IMPRESSION: No hemodynamically significant stenosis or large vessel occlusion. Electronically signed by: Rio Garcia On 01/05/2021 03:18:06 AM
[2021-01-05] MEDS ORDERED: GLUCAGON INJ 1MG VIAL SC PRN ×2 (04:00→05:30)
[2021-01-05] MEDS ORDERED: DEXTROSE 50% 50 ML SYRINGE IV PRN ×2 (04:00→05:30)
[2021-01-05] MEDS ORDERED: D5W/0.9% SODIUM CHLORIDE 500 ML IV SCH (04:00)
[2021-01-05] MEDS ORDERED: GLUCOSE 4GM CHEW TABLET PO PRN ×2 (04:00→05:30)
[2021-01-05] MEDS ORDERED: LABETALOL 100MG/20ML VIAL IV PRN (04:30)
--- NOTE | 2021-01-05 04:32 | HPEPDOC ---
[facility] Medical History & Physical Date of Admission Jan 05, 2021 Date of Service: Jan 05, 2021 Primary Care Physician: NORI AU MD Attending Physician: MARYANA SALES MD History and Physical TIME OF SERVICE: 435pm CHIEF COMPLAINT: dizziness HISTORY OF PRESENT ILLNESS: has been having intermittent dizziness for several years which he was told was due to CO2 poisoning; yesterday he felt extremely dizzy any time he moved his head and nauseous. He vomited every time he tried to eat so he came to the ER for evaluation. He denies drooling, dropping objects or falling. He is also developed shortness of breath while trying to walk this evening and didnt take all his meds yesterday. REVIEW OF SYSTEMS: 10-point review of systems negative except as listed in HPI PAST MEDICAL/ SURGICAL HISTORY: Chronic CAD (PCI 1986, CABG 1999, PCI w stent 2009), Chronic HFpEF, DLP, IDDM, Hypothyroidism, resistant HTN, class 1 obesity, cholecystectomy, hearing loss (wears hearing aides) SOCIAL HISTORY: He doesnt smoke, drink or use recreational drugs, is not and lives alone FAMILY HISTORY: n/a ALLERGIES: Please see below. HOME MEDICATIONS: Please see below. PHYSICAL EXAMINATION: Vital Signs Date Time Temp Pulse Resp B/P (MAP) Pulse Ox O2 Delivery O2 Flow Rate FiO2 01/04/21 19:02 97.5 78 22 124/71 96 Room Air GENERAL APPEARANCE: well nourished and developed / NAD HEENT: EOMI / MMM&P / neck short therefore unable to assess for JVD CARDIOVASCULAR: RRR/NMRG / no LE edema LUNGS: CTAB on RA ABDOMEN: contour convex MUSCULOSKELETAL: NCAT INTEGUMENT: not flushed / has spider angiomata on cheeks NEUROLOGICAL: EOMI/ no nystagmus/ visual gillette intact /face symmetrical / no nasal labial fold flattening / smile symmetrical / tounge midline / speech not dysarthric / strength 5/5 / heel to barrera test normal / has difficulties hearing me because he took his hearing aides unless I stand next to him and talk slowly PSYCHIATRIC: A&O x3 / able to understand and follow all commands LABORATORY DATA: POC Glucose (Misc Panel) 207H, POC Sodium (Misc Panel) 138, POC Potassium (Misc Panel) 4.5, POC Chloride (Misc Panel) 103, POC Total CO2 (Misc Panel) 21.0L, POC Blood Urea Nitrogen (Misc Panel 27H, POC Ionized Calcium (Misc Panel) 5.0, POC Creatinine (Misc Panel) 1.3, POC Hematocrit (Misc Panel) 48.0 01/04/21 19:12: POC Troponin I (Misc) 0.11H Immature Granulocyte % (Auto) 0.9, Neutrophils (%) (Auto) 83.8H, Lymphocytes (%) (Auto) 8.3L, Monocytes (%) (Auto) 6.2, Eosinophils (%) (Auto) 0.4, Basophils (%) (Auto) 0.4, Neutrophils # (Auto) 6.2, Lymphocytes # (Auto) 0.6L, Monocytes # (Auto) 0.5, Eosinophils # (Auto) 0.0, Basophils # (Auto) 0.0, Nucleated Red Blood Cells % (auto) 0.0, Prothrombin Time 15.2H, Prothromb Time International Ratio 1.17, Activated Partial Thromboplast Time 24.6L, Total Bilirubin 1.5H, Direct Bilirubin 0.4H, Aspartate Amino Transf (AST/SGOT) 19, Alanine Aminotransferase (ALT/SGPT) 24, Alkaline Phosphatase 89, Total Protein 6.9, Albumin 4.0, Albumin/Globulin Ratio 1.4, Lipase 266, Thyroid Stimulating Hormone (TSH) 2.850 Blood Gas Bicarbonate Standard 21.1, Venous Blood pH 7.350, Venous Blood Partial Pressure CO2 40.0, Venous Blood Partial Pressure O2 51.1H, Venous Blood Total Carbon Dioxide 22.8L, Venous Blood HCO3 21.6L, Venous Blood Oxygen Saturation 85.4H, Venous Blood Base Excess -3.7L, Carboxyhemoglobin 1.8H POC Troponin I (Misc) 0.08 IMAGING: Chest xray Cardiomegaly and vascular cephalization. Prior sternotomy. No pleural effusion is seen. CT head 1. There is mild age related parenchymal volume loss. White matter changes are demonstrated in the subcortical, centrum semiovale and periventr icular white matter consistent with chronic age related small vessel ischemic changes. 2. The degree of ventricular dilatation is normal for age and/or degree of atrophy present. 3. There is mild diffuse cerebellar atrophy. MRI brain 7 mm acute to early subacute lacunar infarct at the right basal ganglia/gomez radiata. MRA brain No hemodynamically significant stenosis or large vessel occlusion. MICROBIOLOGY: respiratory panel neg ECG shows NSR w a rate of 72, LVH, widening of the QRS, repolarization abnormalities and VT interval of 206. ASSESSMENT: is a 70 yr old w CAD/CABG, HFpEF, DLP, IDDM, Hypothyroidism, HTN, & obesity who is admitted for management of subacute lacu teresa infarct & partially decompensated HFpEF. PLAN: 1 Subacute lacunar infarct Currently his NIH Stroke score is 0 Plan: admit to medical floor / activity as tolerated with fall precautions / telemetry for 48H /bed rest with fall precautions / keep head of bed elevated to 30 degrees /aspiration precautions/ because his [facility] Stroke Dysphagia Screen score (to clear a patient to swallow after a stroke) is low there is no need to keep him NPO & no need to order a swallow eval / PT/OT/SPL consults ARU screen / ASA / permissive hypertension until about 9AM with target blood pressure less than 220/110 there after we will aim for target < 130/80 (because he has co-existing DM) / labetalol 5 mg IV PRN if blood pressure is greater than target / f/u CTA head & neck Echo, lipid panel & A1C / the day time team can place a Neurology consult 2 Partially decompensated HFpEF 2/2 missing Lasix yesterday Plan: f/u Is and Os / daily weights / restrict salt to 2G and fluids to 2L or 67 oz / hold PO Lasix and start 40mg of IV Lasix daily 3 Dizziness and vomiting I am not sure if this is related to the CVA Plan: Zofran and Meclizine 4 Chronic Thrombocytopenia He has a history of thrombocytopenia as far back as 2013 Possible causes include Hepatitis or other liver disorder causing to reduced thrombopoietin production, chronic alcoholism, splenic sequestration, or HIV Plan: f/u Hepatitis panel 5 Chronic CAD / DLP Plan: Aspirin, Atorvastatin, Metoprolol, Nitroglycerin PRN, 6 IDDM Plan: f/u accuchecks / hypoglycemia protocol / sliding scale insulin / hold oral anti-glycemic / f/u A1C (target A1C is about 7.1 to 8.0% bc he is a geriatric patient; if his A1C is above target the day time team may consider adding add empagliflozin or (GLP-1 agonist) ie liraglutide or semaglutide to reduce the risk of CVD to his home regimen when he is ready to be discharged / his P CP may consider out pt Endo referral to switch the patient from basal bolus injection to continuous subcutaneous insulin infusion which has been shown to produced small improvements in A1C, improve QOL and reduce episodes of severe hypoglycemia 7 Hypothyroidism Plan: Levothyroxine 8 Resistant HTN Plan: Lasix, Metoprolol, Valsartan, Isosorbide mononitrate 9 Class 1 obesity Complicates care DVT px w Lovenox (Zachary score is 6 points = pharmacological px indicated) Dispo: home after at least 2 midnights stay Home Medications Scheduled Aspirin (Aspirin EC) 81 Mg Tablet.dr, 81 MG PO DAILY Atorvastatin Calcium (Atorvastatin Calcium) 80 Mg Tablet, 80 MG PO QHS Exenatide Microspheres (Bydureon Bcise) 2 Mg/0.85 Ml Auto.injct, 2 MG SC QWEEK MONDAY MORNINGS Fluocinonide (Fluocinonide) 0.05% 15GM Gel..gram., 1 DOSE EXT DAILY APPLY TO SCALP Furosemide (Furosemide) 40 Mg Tablet, 40 MG PO DAILY Glipizide (Glipizide) 5 Mg Tablet, 5 MG PO BID Insulin Glargine,Hum.rec.anlog (Lantus Solostar) 100 Unit/1 Ml Insuln.pen, 40 UNITS SC DAILY Insulin Human Lispro (Humalog) 100 Unit/1 Ml Vial, 1 DOSE SC AC PER SLIDING SCALE Isosorbide Mononitrate (Isosorbide Mononitrate ER) 30 Mg Tab.er.24h, 30 MG PO DAILY Levothyroxine Sodium (Synthroid) 125 Mcg Tablet, 125 MCG PO DAILY Metoprolol Tartrate (Metoprolol Tartrate) 25 Mg Tablet, 25 MG PO BID [place]y-3 Fatty Acids/Fish Oil (Fish Oil 1,000 mg Capsule) 1 Each Capsule, 1,000 MG PO DAILY Valsartan (Valsartan) 40 Mg Tablet, 40 MG PO DAILY Scheduled PRN Nitroglycerin (Nitroglycerin) 0.4 Mg Tab.subl, 0.4 MG SL NITRO PRN for CHEST PAIN Allergies Coded Allergies: No Known Allergies (Unverified , 05/07/17) A-FIB/CHADSVASC A-FIB History Current/History of A-Fib/PAF?: No Current PO Anticoag Therapy: No LWANGA,MARYANA MD Jan 05, 2021 04:32
[2021-01-05] MEDS ORDERED: ISOVUE-370 76% 100ML VIAL As Ordered ONE (04:50)
[2021-01-05] MEDS ORDERED: BYDU2INJ7 SC (05:04)
[2021-01-05] MEDS ORDERED: SYNT125T PO (05:04)
[2021-01-05] MEDS ORDERED: FLUO-157 EXT (05:04)
[2021-01-05] MEDS ORDERED: ASPI-161 PO (05:04)
[2021-01-05] MEDS ORDERED: ISOS1TAB35 PO (05:04)
[2021-01-05] MEDS ORDERED: ATOR80TA59 PO (05:06)
--- NOTE | 2021-01-05 05:24 | REPVR ---
PROCEDURE INFORMATION: Exam: CT Angiography Head With Contrast, Arteriography Exam date and time: 01/05/2021 3:57 AM Age: 70 years old Clinical indication: Other: Dizzy; Additional info: Dizziness TECHNIQUE: Imaging protocol: Computed tomography angiography of the head with contrast. Exam focused on the arteries. 3D rendering (Not supervised by radiologist): MIP and/or 3D reconstructed images were created by the technologist. Radiation optimization: All CT scans at this facility use at least one of these dose optimization techniques: automated exposure control; mA and/or kV adjustment per patient size (includes targeted exams where dose is matched to clinical indication); or iterative reconstruction. Contrast material: ISO; Contrast volume: 75 ml; Contrast route: INTRAVENOUS (IV); COMPARISON: MRA BRAIN W/O CONTRAST 01/05/2021 2:33 AM FINDINGS: ANTERIOR CIRCULATION: Right internal carotid artery: Calcified plaque of the distal right extracranial internal carotid artery with stenosis of 30% or less. Atherosclerotic plaque of the distal right intracranial internal carotid artery with stenosis of 30% or less. Right middle cerebral artery: Unremarkable. No occlusion or significant stenosis. No aneurysm. Right anterior cerebral artery: Unremarkable. No occlusion or significant stenosis. No aneurysm. Left internal carotid artery: Calcified plaque of the distal left internal carotid artery with stenosis of 30% or less. Left middle cerebral artery: Unremarkable. No occlusion or significant stenosis. No aneurysm. Left anterior cerebral artery: Unremarkable. No occlusion or significant stenosis. No aneurysm. POSTERIOR CIRCULATION: Right vertebral artery: Atherosclerotic plaque of the right intracranial vertebral artery with estimated 30-50% stenosis. Left vertebral artery: Calcified plaque of the left intracranial vertebral artery with estimated 30-50% stenosis. Basilar artery: Unremarkable. No occlusion or significant stenosis. No aneurysm. Right posterior cerebral artery: Unremarkable. No occlusion or significant stenosis. No aneurysm. Left posterior cerebral artery: Unremarkable. No occlusion or significant stenosis. No aneurysm. Brain: No definite mass, mass effect, or midline shift. Cerebral ventricles: No ventriculomegaly. Bones/joints: Unremarkable. No acute fracture. Soft tissues: Unremarkable. IMPRESSION: 1. Calcified plaque of the intracranial vertebral arteries bilaterally with estimated 30-50% stenosis. 2. Otherwise negative CTA head. No additional significant stenosis and no occlusion. Electronically signed by: Alexi Leon On 01/05/2021 05:24:08 AM
[2021-01-05] MEDS ORDERED: NITROGLYCERIN 0.4 MG SUBL TABLET SL PRN (05:30)
[2021-01-05] MEDS ORDERED: MECLIZINE 12.5 MG TAB PO PRN (05:35)
[2021-01-05] MEDS ORDERED: ONDANSETRON 4 MG ORAL DISINTEGRATING TAB PO PRN (05:35)
--- NOTE | 2021-01-05 05:37 | REPVR ---
PROCEDURE INFORMATION: Exam: CT Angiography Neck With Contrast Exam date and time: 01/05/2021 3:57 AM Age: 70 years old Clinical indication: Other: Dizzy; Additional info: Dizziness TECHNIQUE: Imaging protocol: Computed tomography angiography of the neck with contrast. 3D rendering (Not supervised by radiologist): MIP and/or 3D reconstructed images were created by the technologist. Radiation optimization: All CT scans at this facility use at least one of these dose optimization techniques: automated exposure control; mA and/or kV adjustment per patient size (includes targeted exams where dose is matched to clinical indication); or iterative reconstruction. Contrast material: ISO; Contrast volume: 75 ml; Contrast route: INTRAVENOUS (IV); COMPARISON: MRA BRAIN W/O CONTRAST 01/05/2021 2:33 AM FINDINGS: Right common carotid artery: No stenosis. No dissection or occlusion. Right internal carotid artery: Calcified plaque in the proximal right internal carotid artery with stenosis of up to 30-50%. Right external carotid artery: No occlusion or stenosis of the origin. Left common carotid artery: No stenosis. No dissection or occlusion. Left internal carotid artery: No stenosis of the extracranial segment. No dissection or occlusion. Left external carotid artery: No occlusion or stenosis of the origin. Right vertebral artery: The proximal right vertebral artery is not well seen which may reflect thread-like patency or proximal segmental stenosis. Left vertebral artery: Atherosclerotic plaque within the left vertebral artery with calcified plaque which is greatest at the C6 level and estimated at 50-70% stenosis. Soft tissues: Normal. No significant soft tissue swelling. Bones/joints: No acute fracture. Lungs: Biapical interstitial coarsening with minimal ground-glass infiltrates. IMPRESSION: 1. Biapical pulmonary interstitial coarsening with minimal ground-glass pulmonary infiltrates. 2. Calcified plaque in the proximal right internal carotid artery with stenosis of up to 30-50%. 3. Atherosclerotic plaque within the proximal left vertebral artery estimated at 50-70% at the C6 level. 4. Poor visualization of the proximal right vertebral artery which may be related to small size or proximal segmental stenosis. REFERENCES: NASCET CRITERIA. The degree of internal carotid artery stenosis is based on NASCET criteria. Normal is no stenosis. Mild is less than 50% stenosis. Moderate is 50-69% stenosis. Severe is 70% to 99% stenosis. Total occlusion is no detectable patent lumen. Electronically signed by: Alexi Leon On 01/05/2021 05:36:41 AM
[2021-01-05] MEDS: LEVOTHYROXINE 125MCG TABLET (0.125MG) PO SCH (06:00)
[2021-01-05] MEDS ORDERED: HumaLOG INSULIN (NovoLOG) PER UNIT SC SCH ×2 (06:00→21:00)
[2021-01-05] MEDS ORDERED: FUROSEMIDE 40MG/4ML VIAL (J1940) IV ONE (06:00)
[2021-01-05 07:11] LABS: HEMATOCRIT 49.6 % (42.0-52.0); HEMOGLOBIN 16.3 g/dl (13.5-17.5); MEAN CORPUSCULAR HEMOGLOBIN 29.6 pg (27.0-33.0); MEAN CORPUSCULAR HGB CONC 32.9 g/dl (32.0-36.5); MEAN CORPUSCULAR VOLUME 90.2 fl (80.0-96.0); PLATELET COUNT, AUTOMATED 143 10^3/uL (150-450); WHITE BLOOD COUNT 9.3 10^3/uL (4.0-10.0)
[2021-01-05 07:21] LABS: INR 1.18; PROTHROMBIN TIME 15.3 SECONDS (12.5-14.3)
[2021-01-05 07:22] LABS: PARTIAL THROMBOPLASTIN TIME 27.5 SECONDS (24.2-38.5)
[2021-01-05 07:31] LABS: HEMOGLOBIN A1c 6.5 %
[2021-01-05 07:36] LABS: CALCIUM LEVEL 8.9 MG/DL (8.8-10.2); CHOLESTEROL RISK RATIO 4.354 (<5); CREATININE FOR GFR 1.29 MG/DL (0.70-1.30); GLOMERULAR FILTRATION RATE 58.6 (>42); POTASSIUM SERUM 4.7 MEQ/L (3.5-5.1)
--- NOTE | 2021-01-05 07:59 | ECGEPIP ---
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
[2021-01-05] MEDS: LEVEMIR (INSULIN DETEMIR) 1 UNITS/0.01ML SC SCH (08:31)
[2021-01-05] MEDS: ASPIRIN 81MG ENTERIC TABLET PO SCH (08:32)
[2021-01-05] MEDS: ISOSORBIDE MON. (IMDUR) 30 MG XR TAB PO SCH (08:32)
[2021-01-05] MEDS: ENOXAPARIN 40MG/0.4ML SYRINGE (J1650 PER 10MG) SC SCH (08:33)
[2021-01-05] MEDS: METOPROLOL TART 25 MG TABLET PO SCH ×2 (08:33→20:44)
[2021-01-05] MEDS: HumaLOG INSULIN (NovoLOG) PER UNIT SC SCH ×3 (08:33→17:33)
[2021-01-05] MEDS: VALSARTAN 40MG TABLET (DIOVAN) PO SCH (09:00)
[2021-01-05] MEDS ORDERED: LEVEMIR (INSULIN DETEMIR) 1 UNITS/0.01ML SC SCH (09:00)
[2021-01-05 12:27] LABS: HEPATITIS A ANTIBODY IGM NEGATIVE (NEGATIVE); HEPATITIS B CORE ANTIBODY IGM NEGATIVE (NEGATIVE); HEPATITIS B SURFACE ANTIGEN NEGATIVE (NEGATIVE); HEPATITIS C VIRUS ABY INDEX < 0.0 INDEX (<0.8)
[2021-01-05 15:26] LABS: TROPONIN I 0.13 NG/ML (< 0.10)
--- NOTE | 2021-01-05 16:31 | IPNPDOC ---
Date Seen The patient was seen on 01/05/21. Progress Note SUBJECTIVE: Hospital day #1. Nursing staff does not report any overnight events. Patient's troponin levels remain high, without any chest or heart symptoms. He reports good appetite and denies any headaches, nausea, vomiting, diarrhea, constipation, and heart palpitations. OBJECTIVE PHYSICAL EXAMINATION: VITAL SIGNS: Please see below. GENERAL: No acute distress, sitting upright in the gurney, no increased work of breathing. HEENT: Normocephalic, atraumatic, EOMI, no scleral icterus, nares patent, oropharyngeal mucosa moist CARDIOVASCULAR:. Regular rate and rhythm, systolic murmur grade 3/6, loudest at the aortic area. RESPIRATORY: Mild bibasilar inspiratory crackles and expiratory wheezes. No rales or rhonchi. ABDOMINAL: Soft, nontender, nondistended, bowel sounds present EXTREMITIES:. No pitting edema of lower upper extremities, radial and pedal pulses, appropriate and bounding NEUROLOGICAL:. Cranial nerves III-12 intact, upper and lower extremity strength grossly 5 out of 5 PSYCHOLOGICAL: Affect full and open LABORATORY DATA, IMAGING STUDIES, MICROBIOLOGY: Please see below. ASSESSMENT AND PLAN: Patient is a 70-year-old male with a past medical history of CHF with preserved ejection fraction, who presents with an episode of dizziness and was found to have a subacute lacunar infarct in the right basal ganglia without neurological deficits. His troponin was found to be elevated. #Decompensated Heart Failure, likely resolving Likely secondary to patient missing home medication Lasix Continue Lasix Echocardiogram ordered. -Continue strict Is and Os monitoring to ensure negative overall balance -Continue monitoring daily weights, to ensure that the daily weights are not increasing Continue salt restricted diet #Elevated troponin Likely secondary to patient's CHF. Troponin trend has remained stable. Accompanying EKG shows no new changes #Subacute Lacunar Infarct Patient's NIH stroke score on admission was 0 Patient's neurological exam remains within normal limits MRI of the head without contrast showed 7 mm diffusion restriction of the right basal ganglia/gomez radiata MRA head without contrast showed no stenosis or abnormalities DVT prophylaxis ordered: Continue enoxaparin 40 mg daily subcutaneous. DISPOSITION: Likely discharge tomorrow if blood pressure control remains stable and patient does not develop any chest or heart symptoms overnight. VS, I&O, 24H, Fishbone Vital Signs/I&O Vital Signs Date Time Temp Pulse Resp B/P (MAP) Pulse Ox O2 Delivery O2 Flow Rate FiO2 01/05/21 14:00 97.7 68 17 109/76 (87) 95 Room Air 01/05/21 11:22 0.5 I&O- Last 24 Hours up to 6 AM 01/05/21 06:00 Intake Total 1000 ml Balance 1000 ml Laboratory Data 24H LABS Laboratory Tests 2 01/04/21 19:11: POC Glucose (Misc Panel) 207H, POC Sodium (Misc Panel) 138, POC Potassium (Misc Panel) 4.5, POC Chloride (Misc Panel) 103, POC Total CO2 (Misc Panel) 21.0L, POC Blood Urea Nitrogen (Misc Panel 27H, POC Ionized Calcium (Misc Panel) 5.0, POC Creatinine (Misc Panel) 1.3, POC Hematocrit (Misc Panel) 48.0 01/04/21 19:12: POC Troponin I (Misc) 0.11H 01/04/21 19:13: Immature Granulocyte % (Auto) 0.9, Neutrophils (%) (Auto) 83.8H, Lymphocytes (%) (Auto) 8.3L, Monocytes (%) (Auto) 6.2, Eosinophils (%) (Auto) 0.4, Basophils (%) (Auto) 0.4, Neutrophils # (Auto) 6.2, Lymphocytes # (Auto) 0.6L, Monocytes # (Auto) 0.5, Eosinophils # (Auto) 0.0, Basophils # (Auto) 0.0, Nucleated Red Blood Cells % (auto) 0.0, Prothrombin Time 15.2H, Prothromb Time International Ratio 1.17, Activated Partial Thromboplast Time 24.6L, Total Bilirubin 1.5H, Direct Bilirubin 0.4H, Aspartate Amino Transf (AST/SGOT) 19, Alanine Aminotransferase (ALT/SGPT) 24, Alkaline Phosphatase 89, Total Protein 6.9, Albumin 4.0, Albumin/Globulin Ratio 1.4, Lipase 266, Thyroid Stimulating Hormone (TSH) 2.850 01/04/21 20:19: Blood Gas Bicarbonate Standard 21.1, Venous Blood pH 7.350, Venous Blood Partial Pressure CO2 40.0, Venous Blood Partial Pressure O2 51.1H, Venous Blood Total Carbon Dioxide 22.8L, Venous Blood HCO3 21.6L, Venous Blood Oxygen Saturation 85.4H, Venous Blood Base Excess -3.7L, Carboxyhemoglobin 1.8H 01/04/21 23:14: POC Troponin I (Misc) 0.08 01/05/21 01:02: Coronavirus (COVID-19)(PCR) NEGATIVE, Influenza Type A (RT-PCR) NEGATIVE, Influenza Type B (RT-PCR) NEGATIVE, Respiratory Syncytial Virus (PCR) NEGATIVE 01/05/21 06:57: Nucleated Red Blood Cells % (auto) 0.0, Prothrombin Time 15.3H, Prothromb Time International Ratio 1.18, Activated Partial Thromboplast Time 27.5, Anion Gap 5L, Glomerular Filtration Rate 58.6, Estimated Mean Plasma Glucose 140H, Hemoglobin A1c 6.5, Calcium Level 8.9, Triglycerides Level 161H, Total Cholesterol 135, LDL Cholesterol 72, Non-HDL Cholesterol (LDL + VLDL) 104, Total HDL Cholesterol 31L, Cholesterol/HDL Ratio 4.354, Hepatitis A IgM Antibody NEGATIVE, Hepatitis B Surface Antigen NEGATIVE, Hepatitis B Core IgM Antibody NEGATIVE, Hepatitis C Antibody Index < 0.0 01/05/21 07:32: Bedside Glucose (Misc Panel) 145H 01/05/21 09:29: Troponin I 0.12H 01/05/21 12:22: Bedside Glucose (Misc Panel) 192H 01/05/21 14:25: Troponin I 0.13H CBC/BMP Laboratory Tests 01/04/21 19:13 01/05/21 06:57 GME ATTESTATION GME ATTESTATION My faculty preceptor for this patient encounter was physically present during the encounter and was fully available. All aspects of the patient interview, examination, medical decision making process, and medical care plan development were reviewed and approved by the faculty preceptor. The faculty preceptor is aware and concurs with the plan as stated in the body of this note and will at test to such by his/her cosignature. ATTENDING NOTE I personally examined the patient and discussed findings, studies and plan as described by the resident physician above. Vaibhav Lopez DO Jan 05, 2021 16:31 STUART BARNHART MD Jan 05, 2021 23:41
[2021-01-05] MEDS ORDERED: ATORVASTATIN 20 MG TAB PO SCH (21:00)
--- NOTE | 2021-01-05 23:34 | ECGEPIP ---
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 No significant change compared with 01/04/2021 at 2257 hrs. Electronically Signed on 01-05-2021 23:33:58 EDT by Silvio Avendano
[2021-01-06 02:00] VITALS: BP 109/65
[2021-01-06] MEDS: LEVOTHYROXINE 125MCG TABLET (0.125MG) PO SCH (05:30)
[2021-01-06 06:00] VITALS: BP 120/75
[2021-01-06 06:35] LABS: HEMATOCRIT 44.7 % (42.0-52.0); HEMOGLOBIN 14.5 g/dl (13.5-17.5); MEAN CORPUSCULAR HEMOGLOBIN 29.2 pg (27.0-33.0); MEAN CORPUSCULAR HGB CONC 32.4 g/dl (32.0-36.5); MEAN CORPUSCULAR VOLUME 90.1 fl (80.0-96.0); PLATELET COUNT, AUTOMATED 124 10^3/uL (150-450); RED BLOOD COUNT 4.96 10^6/uL (4.30-6.10); WHITE BLOOD COUNT 6.7 10^3/uL (4.0-10.0)
[2021-01-06 06:53] LABS: BLOOD UREA NITROGEN 27 MG/DL (7-18); CALCIUM LEVEL 8.7 MG/DL (8.8-10.2); CARBON DIOXIDE LEVEL 25 MEQ/L (21-32); CHLORIDE LEVEL 107 MEQ/L (98-107); GLOMERULAR FILTRATION RATE > 60.0 (>42); GLUCOSE, FASTING 132 MG/DL (70-100); POTASSIUM SERUM 4.2 MEQ/L (3.5-5.1); SODIUM LEVEL 138 MEQ/L (136-145)
[2021-01-06] MEDS ORDERED: FUROSEMIDE 40 MG TAB PO SCH (09:00)
[2021-01-06] MEDS: ISOSORBIDE MON. (IMDUR) 30 MG XR TAB PO SCH (09:00)
[2021-01-06] MEDS ORDERED: FUROSEMIDE 40MG/4ML VIAL (J1940) IV SCH (09:00)
[2021-01-06] MEDS: METOPROLOL TART 25 MG TABLET PO SCH (09:00)
[2021-01-06 09:07] VITALS: BP 132/84
[2021-01-06] MEDS: ASPIRIN 81MG ENTERIC TABLET PO SCH (09:07)
[2021-01-06] MEDS: VALSARTAN 40MG TABLET (DIOVAN) PO SCH (09:07)
[2021-01-06] MEDS: HumaLOG INSULIN (NovoLOG) PER UNIT SC SCH ×2 (09:08→17:41)
[2021-01-06] MEDS: LEVEMIR (INSULIN DETEMIR) 1 UNITS/0.01ML SC SCH (09:08)
[2021-01-06] MEDS: ENOXAPARIN 40MG/0.4ML SYRINGE (J1650 PER 10MG) SC SCH (09:09)
[2021-01-06 09:11] LABS: TROPONIN I 0.15 NG/ML (< 0.10)
[2021-01-06 10:00] VITALS: BP 134/84
--- NOTE | 2021-01-06 18:02 | DS.PDOC ---
Discharge Summary General Date of Admission Jan 05, 2021 at 03:57 Date of Discharge 01/06/2021 Attending Physician: STUART BARNHART MD Specialist/Consultants Involve: ASHISH CORNELL MD Discharge Summary PROCEDURES PERFORMED DURING STAY: None. ADMITTING DIAGNOSES: Stroke Hypertensive Urgency DISCHARGE DIAGNOSES: Aortic stenosis HFrEF HTN COMPLICATIONS/CHIEF COMPLAINT: CVA. HISTORY OF PRESENT ILLNESS: Admitting physician stated: " has been hav ing intermittent dizziness for several years which he was told was due to CO2 poisoning; yesterday he felt extremely dizzy any time he moved his head and nauseous. He vomited every time he tried to eat so he came to the ER for evaluation. He denies drooling, dropping objects or falling. He is also d eveloped shortness of breath while trying to walk this evening and didnt take all his meds yesterday." HOSPITAL COURSE: In the emergency room the patient received meclizine 50 mg once p.o. and ondansetron 4 mg once IV due to patient's initial complaint of nausea and dizziness. Throughout the patient's hospital stay, the patient denied any chest pain symptoms. He denied heart palpitations, diaphoresis, visual disturbances, headaches, numbness or tingling, or any weakness of the trunk or extremities. Patient did report feeling short of breath and initial troponin was 0.11. Therefore troponin trend was started however patient's troponin remained around the same. The patient's last troponin on day of discharge was 0.15. Each EKG showed no changes from prior. Patient remained asymptomatic. Although patient did not have lower extremity edema, patient did have inspiratory crackles in the bibasilar lung gillette. Patient was administered 1 IV dose of 40 mg furosemide on 01/05/2021, metoprolol 25 mg p.o., And isosorbide mononitrate 30 mg p.o. Subsequently, patient's blood pressure decreased blood pressures in the 90s. Patient's blood pressure medications were then held. On the morning of discharge, patient's systolic blood pressure increased and was within the range of 130s. During the patient's entire stay, patient was placed on sliding scale insulin and insulin detemir 30 units, while home antidiabetic medications were held. Patient was given enoxaparin 40 mg subcutaneous for DVT prophylaxis. Patient was also given his home medication of levothyroxine 125 mcg on both his hospital days. DISCHARGE MEDICATIONS: Please see below. ALLERGIES: Please see below. PHYSICAL EXAMINATION ON DISCHARGE: VITAL SIGNS: Please see below. GENERAL: In no acute distress, lying back in bed, has finished breakfast. HEENT: Normocephalic, atraumatic. Sclera nonicteric, nares patent, oropharyngeal mucosa moist, EOMI. CARDIOVASCULAR EXAMINATION: Regular rate and rhythm, systolic ejection murmur crescendo decrescendo appreciated best in aortic area, no rubs or gallops appreciated. RESPIRATORY EXAMINATION: Bibasilar inspiratory crackles appreciated. No wheezes rales or rhonchi. ABDOMINAL EXAMINATION: Soft, nontender, nondistended, bowel sounds present. Liver's edge difficult to palpate due to body habitus. EXTREMITIES: Radial and pedal pulses equal and bounding, no clubbing, cyanosis, edema appreciated. NEUROLOGICAL EXAMINATION: Cranial nerves III to XII intact, upper and lower extremity strength 5 out of 5. PSYCHIATRIC EXAMINATION: Affect full and open, patient alert and oriented x4. LABORATORY DATA: Please see below. IMAGING: Chest x-ray, 01/04/2021 Cardiomegaly and vascular cephalization. Prior sternotomy. No pleural effusion is seen. Head CT 01/04/2021 IMPRESSION: 1. There is mild age related parenchymal volume loss. White matter changes are demonstrated in the subcortical, centrum semiovale and periventricular white matter consistent with chronic age related small vessel ischemic changes. 2. The degree of ventricular dilatation is normal for age and/or degree of atrophy present. 3. There is mild diffuse cerebellar atrophy. Brain MRI 01/05/2021 There is motion artifact. Major vascular flow voids at the skull base are preserved. No extra-axial fluid collection. No hydrocephalus. Non-specific white matter gliosis, probable chronic microvascular ischemia. Small chronic right cerebellar infarct. No midline shift or intracranial mass effect. Diffusion restriction at the right basal ganglia/gomez radiata measures 7 mm. Visualized paranasal sinuses are clear. Minimal bilateral mastoid effusions. IMPRESSION: 7 mm acute to early subacute lacunar infarct at the right basal ganglia/gomez radiata. Brain MRA 01/05/2021 No hemodynamically significant stenosis or large vessel occlusion. CT angiography 01/05/2021 1. Calcified plaque of the intracranial vertebral arteries bilaterally with estimated 30-50% stenosis. 2. Otherwise negative CTA head. No additional significant stenosis and no occlusion. Neck CTA 01/05/2021 1. Biapical pulmonary interstitial coarsening with minimal ground-glass pulmonary infiltrates. 2. Calcified plaque in the proximal right internal carotid artery with stenosis of up to 30-50%. 3. Atherosclerotic plaque within the proximal left vertebral artery estimated at 50-70% at the C6 level. 4. Poor visualization of the proximal right vertebral artery which may be related to small size or proximal segmental stenosis. REFERENCES: NASCET CRITERIA. The degree of internal carotid artery stenosis is based on NASCET criteria. Normal is no stenosis. Mild is less than 50% stenosis. Moderate is 50-69% stenosis. Severe is 70% to 99% stenosis. Total occlusion is no detectable patent lumen. PROGNOSIS: Fair ACTIVITY: As tolerated. DIET: 2 gram sodium, consistent carbohydrate diet DISCHARGE INSTRUCTIONS: Please follow-up with PCP within the next 3 to 5 days for optimal cardiovascular medications Please follow-up with PCP for neurologic work-up for possible vertigo. Please follow-up with Dr. Cornell within the next week. Please continue home medications. Please present back to the hospital or for immediate medical care if symptoms worsen, or worrying symptoms persist. DISCHARGE CONDITION: Stable. TIME SPENT ON DISCHARGE: 37 minutes. Vital Signs/I&Os Vital Signs Date Time Temp Pulse Resp B/P (MAP) Pulse Ox O2 Delivery O2 Flow Rate FiO2 01/06/21 10:00 97.0 79 18 134/84 (101) 96 Room Air 01/05/21 22:41 2.0 I&O- Last 24 Hours up to 6 AM 01/06/21 06:00 Intake Total 2425 ml Output Total 1500 ml Balance 925 ml Laboratory Data Labs 24H Laboratory Tests 2 01/05/21 16:34: Bedside Glucose (Misc Panel) 200H 01/05/21 20:30: Bedside Glucose (Misc Panel) 249H 01/06/21 05:30: Nucleated Red Blood Cells % (auto) 0.0, Anion Gap 6L, Glomerular Filtration Rate > 60.0, Calcium Level 8.7L, Troponin I 0.15H 01/06/21 11:55: Bedside Glucose (Misc Panel) 240H 01/06/21 15:33: Bedside Glucose (Misc Panel) 205H CBC/BMP Laboratory Tests 01/06/21 05:30 FSBS Laboratory Tests Test 01/05/21 16:34 01/05/21 20:30 01/06/21 11:55 01/06/21 15:33 Range/Units Bedside Glucose (Misc Panel) 200 249 240 205 83-110 MG/DL Discharge Medications Scheduled Aspirin (Aspirin EC) 81 Mg Tablet.dr, 81 MG PO DAILY, (Reported) Atorvastatin Calcium (Atorvastatin Calcium) 80 Mg Tablet, 80 MG PO QHS, (Reported) Exenatide Microspheres (Bydureon Bcise) 2 Mg/0.85 Ml Auto.injct, 2 MG SC QWEEK, (Reported) MONDAY MORNINGS Fluocinonide (Fluocinonide) 0.05% 15GM Gel..gram., 1 DOSE EXT DAILY, (Reported) APPLY TO SCALP Furosemide (Furosemide) 40 Mg Tablet, 40 MG PO DAILY, (Reported) Glipizide (Glipizide) 5 Mg Tablet, 5 MG PO BID, (Reported) Insulin Glargine,Hum.rec.anlog (Lantus Solostar) 100 Unit/1 Ml Insuln.pen, 40 UNITS SC DAILY, (Reported) Insulin Human Lispro (Humalog) 100 Unit/1 Ml Vial, 1 DOSE SC AC, (Reported) PER SLIDING SCALE Isosorbide Mononitrate (Isosorbide Mononitrate ER) 30 Mg Tab.er.24h, 30 MG PO DAILY, (Reported) Levothyroxine Sodium (Synthroid) 125 Mcg Tablet, 125 MCG PO DAILY, (Reported) Metoprolol Tartrate (Metoprolol Tartrate) 25 Mg Tablet, 25 MG PO BID, (Reported) [place]-3 Fatty Acids/Fish Oil (Fish Oil 1,000 mg Capsule) 1 Each Capsule, 1,000 MG PO DAILY, (Reported) Valsartan (Valsartan) 40 Mg Tablet, 40 MG PO DAILY, (Reported) Scheduled PRN Nitroglycerin (Nitroglycerin) 0.4 Mg Tab.subl, 0.4 MG SL NITRO PRN for CHEST PAIN, (Reported) Allergies Coded Allergies: No Known Allergies (Unverified , 05/07/17) GME ATTESTATION GME ATTESTATION My faculty preceptor for this patient encounter was physically present during the encounter and was fully available. All aspects of the patient interview, examination, medical decision making process, and medical care plan development were reviewed and approved by the faculty preceptor. The faculty preceptor is a john and concurs with the plan as stated in the body of this note and will attest to such by his/her cosignature. ATTENDING NOTE I personally examined the patient and agree with the findings and plan as detailed in the resident physician note above. Vaibhav Lopez DO Jan 06, 2021 18:01 STUART BARNHART MD Jan 07, 2021 07:40
--- NOTE | 2021-01-07 14:36 | ECHO ---
ECHOCARDIOGRAM DATE OF PROCEDURE: 01/06/2021 Age: Gender: Height: Weight: (00:09 to 00:17 sound issues) REFERRING PROVIDER: (00:19 00:52) DOPPLER MEASUREMENT Peak velocity across the aortic valve 3.2 m/s Peak velocity across the LVOT 2.6 m/s Peak gradient across the aortic valve 43 mmHg Mean gradient across the aortic valve 26 mmHg Mitral E 0.83 Mitral A 0.62 with a ratio of 1.3 Maximum tricuspid valve velocity 2.6 m/s 1. (01:11 to 01:21 sound issues) global left ventricular systolic function. The estimated left ventricular ejection fraction is 25 to 30% with global hypokinesis. 2. Mild to moderately enlarged left atrium. Normal right atrium and right ventricle. 3. The atrial septum appeared to be normal without evidence of defect or shunt. 4. (01:40 to 01:51 sound issues. 5. Mildly calcified mitral annulus with normal anterior mitral (01:52 to 01:57 sound issues. The proximal pulmonary artery (01:58 to 02:03 sound issues) mildly enlarged, central venous pressure mildly elevated. 6. (02:08 to 02:12 sound issues) was negative for intracardiac shunt. (02:16 to 02:21 sound issues), mild tricuspid (02:22 to 02:27 sounds issues) pulmonary artery systolic pressure varies between 30 to 40 mmHg. Assessment of the left ventricular diastolic function was normal. Abnormal relaxation pattern was noted (02:38 to 02:50 sound issues) mildly enlarged left ventricle. There were some features of grade (02:54 to 02:56) mildly elevated. 7. (03:01 to 03:15 sound issues) mitral annulus calcification with mild to moderately enlarged left atrium and mild mitral regurgitation. 8. Mild tricuspid regurgitation with mild to moderate (03:25 to 03:27 sound issues). 9. Trace pericardial effusion. 10. Negative bubble study for intracardiac shunt. 11. (03:37 to end sound issues).
== END 2021-01-06 17:56 | disposition home health service (06) | DRG 64 ==
LOC: M ED 18:52 → M ED INP 01-05 03:57 → M MSPAV 01-05 10:34
PROVIDERS: ADMIT Internal Medicine; ATTEND Internal Medicine
DX: I63.9 Cerebral infarction, unspecified (principal); I50.33 Acute on chronic diastolic (congestive) heart failure; I16.0 Hypertensive urgency; I35.0 Nonrheumatic aortic (valve) stenosis; I11.0 Hypertensive heart disease with heart failure; Z79.899 Other long term (current) drug therapy; Z79.82 Long term (current) use of aspirin; Z79.4 Long term (current) use of insulin; I25.10 Atherosclerotic heart disease of native coronary artery without angina pectoris; Z95.1 Presence of aortocoronary bypass graft; E11.9 Type 2 diabetes mellitus without complications; E03.9 Hypothyroidism, unspecified; E66.9 Obesity, unspecified

== ENCOUNTER → 2021-01-21 | Outpatient (CLI) | payer MEDICARE ==
[~2021-01-21] MED LIST changes: +ASPI-161 PO; +BYDU2INJ7 SC; +FLUO-157 EXT; +ISOS1TAB35 PO; +SYNT125T PO
== END ==
LOC: M LABSMTC 10:11
PROVIDERS: ATTEND Internal Medicine Cardiovascular Disease
DX: Z01.812 Encounter for preprocedural laboratory examination (principal); Z20.822 Contact with and (suspected) exposure to COVID-19; I25.10 Atherosclerotic heart disease of native coronary artery without angina pectoris; I25.83 Coronary atherosclerosis due to lipid rich plaque

== ENCOUNTER → 2021-01-30 | Outpatient (CLI) | payer MEDICARE | LOC: M LABSMTC 09:28 | PROVIDERS: ATTEND Internal Medicine Cardiovascular Disease | DX: Z20.822 Contact with and (suspected) exposure to COVID-19 (principal) ==

== ENCOUNTER → 2021-02-01 | Outpatient (CLI) | payer MEDICARE ==
[2021-02-01 18:05] LABS: CALCIUM LEVEL 9.6 MG/DL (8.8-10.2); CREATININE FOR GFR 1.47 MG/DL (0.70-1.30); GLOMERULAR FILTRATION RATE 50.4 (>42); POTASSIUM SERUM 4.5 MEQ/L (3.5-5.1)
== END ==
LOC: M PLALAB 14:07
PROVIDERS: ATTEND Student in an Organized Health Care Education/Training Program
DX: I50.9 Heart failure, unspecified (principal)

== ENCOUNTER → 2021-08-24 | Outpatient (CLI) | payer MEDICARE ==
[2021-08-24 12:18] LABS: ALBUMIN 4.1 GM/DL (3.2-5.2); BILIRUBIN,TOTAL 0.8 MG/DL (0.2-1.0); CHOLESTEROL RISK RATIO 7.73 (<5); CREATININE FOR GFR 1.6 MG/DL (0.70-1.30); FREE T4 1.11 NG/DL (0.76-1.46); GLOMERULAR FILTRATION RATE 45.6 (>42); POTASSIUM SERUM 4.7 MEQ/L (3.5-5.1); THYROID STIMULATING HORMONE 8.82 uIU/ML (0.358-3.740); TOTAL PROTEIN 7.2 GM/DL (6.4-8.2)
[2021-08-24 13:13] LABS: HEMOGLOBIN A1c 7.1 %
== END ==
LOC: M PLALAB 08:03
PROVIDERS: ATTEND Student in an Organized Health Care Education/Training Program
DX: E11.9 Type 2 diabetes mellitus without complications (principal)

== ENCOUNTER → 2021-10-23 | Outpatient (CLI) | payer MEDICARE, OTHER | LOC: M SLEEP 20:00 | PROVIDERS: ATTEND Nurse Practitioner Family | DX: G47.33 Obstructive sleep apnea (adult) (pediatric) (principal) ==

== ENCOUNTER → 2022-01-01 | Outpatient (CLI) | payer OTHER | LOC: M SLEEP 20:00 | PROVIDERS: ATTEND Nurse Practitioner Family | DX: G47.33 Obstructive sleep apnea (adult) (pediatric) (principal) ==

== ENCOUNTER → 2022-04-22 | Outpatient (CLI) | payer MEDICARE ==
[2022-04-22 10:47] LABS: BASO # 0.1 10^3/uL (0.0-0.2); BASO % 0.7 % (0.0-1.0); EOS # 0.3 10^3/uL (0.0-0.5); EOS % 3.5 % (0.0-3.0); HEMATOCRIT 47.2 % (42.0-52.0); HEMOGLOBIN 15.8 g/dl (13.5-17.5); LYMPH % 12.8 % (24.0-44.0); MEAN CORPUSCULAR HEMOGLOBIN 30.4 pg (27.0-33.0); MEAN CORPUSCULAR HGB CONC 33.5 g/dl (32.0-36.5); MEAN CORPUSCULAR VOLUME 90.9 fl (80.0-96.0); MONO # 0.8 10^3/uL (0.0-0.8); MONO % 9.6 % (2.0-8.0); NEUTROPHILS # 5.8 10^3/uL (1.5-8.5); NEUTROPHILS % 72.4 % (36.0-66.0); PLATELET COUNT, AUTOMATED 126 10^3/uL (150-450); RED BLOOD COUNT 5.19 10^6/uL (4.30-6.10); WHITE BLOOD COUNT 8.1 10^3/uL (4.0-10.0)
[2022-04-22 11:27] LABS: HEMOGLOBIN A1c 6.5 %
[2022-04-22 11:41] LABS: ALBUMIN 4.1 GM/DL (3.2-5.2); BILIRUBIN,TOTAL 1.1 MG/DL (0.2-1.0); CHOLESTEROL RISK RATIO 4.451 (<5); CREATININE FOR GFR 1.7 MG/DL (0.70-1.30); FREE T4 1.04 NG/DL (0.76-1.46); GLOMERULAR FILTRATION RATE 42.4 (>42); POTASSIUM SERUM 4.7 MEQ/L (3.5-5.1); THYROID STIMULATING HORMONE 3.92 uIU/ML (0.358-3.740)
[2022-04-22 11:51] LABS: CREATININE, URINE 60.4 MG/DL; MALB URINE SIEMENS 13.7 MG/L; MAU/CREAT RATIO 22.6 MCG/MG (0.0-30.0)
== END ==
LOC: M PLALAB 08:59
PROVIDERS: ATTEND Student in an Organized Health Care Education/Training Program
DX: E03.9 Hypothyroidism, unspecified (principal); E11.9 Type 2 diabetes mellitus without complications

== ENCOUNTER → 2022-10-27 | Outpatient (REF) | payer MEDICARE, OTHER ==
[~2022-10-27] MED LIST changes: -FLUO-157 EXT; +FLUO0.0531 EXT
== END ==
LOC: M SFHCDERM 12:52
PROVIDERS: ATTEND Nurse Practitioner Family
DX: D23.61 Other benign neoplasm of skin of right upper limb, including shoulder (principal)

== ENCOUNTER → 2022-10-27 | Outpatient (CLI) | payer MEDICARE ==
[2022-10-27 11:58] LABS: HEMOGLOBIN A1c 7.2 % (4.0-6.0)
[2022-10-27 12:14] LABS: FREE T4 1.14 NG/DL (0.89-1.76)
[2022-10-27 12:19] LABS: CALCIUM LEVEL 9.2 MG/DL (8.3-10.6); CREATININE FOR GFR 1.64 MG/DL (0.70-1.30); GLOMERULAR FILTRATION RATE 44.2 (>42); POTASSIUM SERUM 4.4 MMOL/L (3.5-5.1)
[2022-10-27 12:42] LABS: THYROID STIMULATING HORMONE 3.116 uIU/ML (0.55-4.78)
== END ==
LOC: M PLALAB 08:19
PROVIDERS: ATTEND Student in an Organized Health Care Education/Training Program
DX: E03.9 Hypothyroidism, unspecified (principal); E11.9 Type 2 diabetes mellitus without complications; N18.31 Chronic kidney disease, stage 3a

== ENCOUNTER → 2023-08-07 | Outpatient (REF) | payer MEDICARE ==
[~2023-08-07] MED LIST changes: +CARV3.12 PO; +GLIP5TAB17 PO; -GLIP5TAB8 PO; +INSU100I24 SC; +JARD1TAB PO; +LEVO125T4 PO; +LISI2.5T9 PO; +SPIR-10 PO
[2023-08-07 15:41] LABS: BASO % 0.4 % (0.0-1.0); EOS # 0.2 10^3/uL (0.0-0.5); EOS % 3.1 % (0.0-3.0); HEMATOCRIT 36.5 % (42.0-52.0); HEMOGLOBIN 11.3 g/dl (13.5-17.5); LYMPH # 0.9 10^3/uL (1.5-5.0); LYMPH % 12.6 % (24.0-44.0); MEAN CORPUSCULAR HEMOGLOBIN 27.8 pg (27.0-33.0); MEAN CORPUSCULAR VOLUME 89.7 fl (80.0-96.0); MONO # 0.9 10^3/uL (0.0-0.8); NEUTROPHILS % 70.2 % (36.0-66.0); PLATELET COUNT, AUTOMATED 171 10^3/uL (150-450); RED BLOOD COUNT 4.07 10^6/uL (4.30-6.10); WHITE BLOOD COUNT 7.1 10^3/uL (4.0-10.0)
[2023-08-07 16:18] LABS: ALBUMIN 3.3 G/DL (3.2-5.2); BILIRUBIN,TOTAL 0.7 MG/DL (0.3-1.2); CALCIUM LEVEL 8.9 MG/DL (8.3-10.6); CREATININE FOR GFR 1.47 MG/DL (0.70-1.30); POTASSIUM SERUM 4.1 MMOL/L (3.5-5.1); TOTAL PROTEIN 6.6 G/DL (5.7-8.2)
[2023-08-07 16:19] LABS: FREE T4 1.82 NG/DL (0.89-1.76)
[2023-08-07 16:20] LABS: THYROID STIMULATING HORMONE 0.854 uIU/ML (0.55-4.78)
== END ==
LOC: M LAB REF 14:44
PROVIDERS: ATTEND Physician Assistant
DX: E03.9 Hypothyroidism, unspecified (principal); I10 Essential (primary) hypertension

== ENCOUNTER 2023-11-14 21:42 | Emergency (ER) | payer MEDICARE ==
[~2023-11-14] VITALS: Ht 170.2 cm; Wt 78.2 kg
[~2023-11-14 21:42] MED LIST changes: -ASPI-161 PO; +ASPI-615 PO
[2023-11-14 21:43] VITALS: TEMP 97.9
[2023-11-14 23:10] LABS: BASO % 0.5 % (0.0-1.0); EOS # 0.1 10^3/uL (0.0-0.5); EOS % 2.2 % (0.0-3.0); HEMATOCRIT 37.7 % (42.0-52.0); HEMOGLOBIN 11.8 g/dl (13.5-17.5); LYMPH # 0.9 10^3/uL (1.5-5.0); LYMPH % 14.1 % (24.0-44.0); MEAN CORPUSCULAR HEMOGLOBIN 25.6 pg (27.0-33.0); MEAN CORPUSCULAR HGB CONC 31.3 g/dl (32.0-36.5); MEAN CORPUSCULAR VOLUME 81.8 fl (80.0-96.0); MONO # 0.9 10^3/uL (0.0-0.8); MONO % 13.4 % (2.0-8.0); NEUTROPHILS # 4.5 10^3/uL (1.5-8.5); PLATELET COUNT, AUTOMATED 149 10^3/uL (150-450); RED BLOOD COUNT 4.61 10^6/uL (4.30-6.10); WHITE BLOOD COUNT 6.5 10^3/uL (4.0-10.0)
[2023-11-14 23:40] LABS: CALCIUM LEVEL 8.4 MG/DL (8.3-10.6); CREATININE FOR GFR 1.98 MG/DL (0.70-1.30); GLOMERULAR FILTRATION RATE 35.4 (>42); POTASSIUM SERUM 4.2 MMOL/L (3.5-5.1)
[2023-11-15 01:30] VITALS: BP 124/64; O2SAT 97
== END 2023-11-15 01:59 | disposition home or self-care (01) ==
LOC: M ED 21:42
DX: E11.9 Type 2 diabetes mellitus without complications (principal); I25.10 Atherosclerotic heart disease of native coronary artery without angina pectoris; I10 Essential (primary) hypertension; Z95.1 Presence of aortocoronary bypass graft; Z79.4 Long term (current) use of insulin; Z79.82 Long term (current) use of aspirin; Z79.899 Other long term (current) drug therapy

== ENCOUNTER 2024-01-09 18:16 | Emergency (ER) | payer MEDICARE ==
[~2024-01-09] VITALS: Ht 170.2 cm; Wt 83.0 kg
[2024-01-09] MEDS ORDERED: ELIQ5TAB (18:29)
[2024-01-09] MEDS ORDERED: FURO20TA2 (18:29)
[2024-01-09] MEDS ORDERED: CLOP75TA2 (18:29)
[2024-01-09] MEDS ORDERED: AMIO200T49 (18:29)
[2024-01-09 20:07] VITALS: BP 169/92; TEMP 98.1; O2SAT 97
== END 2024-01-09 23:53 | disposition left against medical advice (07) ==
LOC: M ED 18:16
DX: Z53.21 Procedure and treatment not carried out due to patient leaving prior to being seen by health care provider (principal)

== ENCOUNTER → 2024-08-02 | Outpatient (CLI) | payer MEDICARE, MEDICAID ==
[~2024-08-02] MED LIST changes: +AMIO200T49; +CLOP75TA2; +ELIQ5TAB; +FURO20TA2
== END ==
LOC: M RAD 08:45
PROVIDERS: ATTEND Internal Medicine Nephrology
DX: N18.31 Chronic kidney disease, stage 3a (principal); I70.1 Atherosclerosis of renal artery; N20.0 Calculus of kidney; N40.0 Benign prostatic hyperplasia without lower urinary tract symptoms

== ENCOUNTER → 2025-02-18 | Outpatient (REF) | payer MEDICARE, MEDICAID ==
[~2025-02-18] MED LIST changes: -AMIO200T49; +AMIO200T54; -BYDU2INJ7 SC; +CLOP75TA2 PO; +ELIQ5TAB PO; +EXEN2AUT SC; +senna PO
== END ==
LOC: M SMT 14:26 → M LABWUC 14:26
PROVIDERS: ATTEND Physician Assistant
DX: R97.20 Elevated prostate specific antigen [PSA] (principal)

== ENCOUNTER → 2025-03-31 | Outpatient (CLI) | payer MEDICARE, MEDICAID ==
[2025-03-31 15:55] LABS: CALCIUM LEVEL 9.0 MG/DL (8.3-10.6); CARBON DIOXIDE LEVEL 26.0 MMOL/L (20-31); CHLORIDE LEVEL 102.0 MMOL/L (98-107); CREATININE FOR GFR 1.87 MG/DL (0.70-1.30); GLOMERULAR FILTRATION RATE 37.0 (>42); POTASSIUM SERUM 4.0 MMOL/L (3.5-5.1); SODIUM LEVEL 138.0 MMOL/L (136-145)
== END ==
LOC: M WUC 11:51
PROVIDERS: ATTEND Nurse Practitioner Family
DX: E11.65 Type 2 diabetes mellitus with hyperglycemia (principal)

== ENCOUNTER 2025-04-19 16:14 | Emergency (ER) | payer MEDICARE, MEDICAID ==
[~2025-04-19] VITALS: Ht 170.2 cm; Wt 83.4 kg
[2025-04-19] MEDS ORDERED: POTA1TAB23 (16:34)
[2025-04-19] MEDS ORDERED: TORS20TA2 PO (16:34)
[2025-04-19] MEDS ORDERED: ALLO100T (16:34)
[2025-04-19] MEDS ORDERED: TAMS1CAP17 (16:34)
[2025-04-19 17:13] LABS: BASO # 0.0 10^3/uL (0.0-0.2); BASO % 0.4 % (0.0-1.0); EOS # 0.1 10^3/uL (0.0-0.5); EOS % 2.5 % (0.0-3.0); LYMPH # 0.7 10^3/uL (1.5-5.0); LYMPH % 13.8 % (24.0-44.0); MONO # 0.6 10^3/uL (0.0-0.8); MONO % 13.1 % (2.0-8.0); NEUTROPHILS # 3.4 10^3/uL (1.5-8.5); NEUTROPHILS % 69.2 % (36.0-66.0); PLATELET COUNT, AUTOMATED 164 10^3/uL (150-450)
[2025-04-19 17:32] LABS: ALT/SGPT 22.0 U/L (7.0-40); AST/SGOT 30.0 U/L (<34); CALCIUM LEVEL 8.8 MG/DL (8.3-10.6); CARBON DIOXIDE LEVEL 29.0 MMOL/L (20-31); CHLORIDE LEVEL 97.0 MMOL/L (98-107); CREATININE FOR GFR 2.07 MG/DL (0.70-1.30); GLOMERULAR FILTRATION RATE 32.8 (>42); POTASSIUM SERUM 3.6 MMOL/L (3.5-5.1); SODIUM LEVEL 135.0 MMOL/L (136-145)
[2025-04-19 19:30] VITALS: BP 121/64; TEMP 98; O2SAT 97
== END 2025-04-19 19:51 | disposition home or self-care (01) ==
LOC: M ED 16:14
DX: I50.22 Chronic systolic (congestive) heart failure (principal); I50.1 Left ventricular failure, unspecified; J11.1 Influenza due to unidentified influenza virus with other respiratory manifestations; I48.91 Unspecified atrial fibrillation; I12.9 Hypertensive chronic kidney disease with stage 1 through stage 4 chronic kidney disease, or unspecified chronic kidney disease; I50.9 Heart failure, unspecified; I25.10 Atherosclerotic heart disease of native coronary artery without angina pectoris; E11.9 Type 2 diabetes mellitus without complications; E78.5 Hyperlipidemia, unspecified; G47.33 Obstructive sleep apnea (adult) (pediatric); Z95.1 Presence of aortocoronary bypass graft; Z95.0 Presence of cardiac pacemaker

== ENCOUNTER → 2025-06-10 | Outpatient (CLI) | payer MEDICARE, MEDICAID ==
[~2025-06-10] MED LIST changes: +ALLO100T; +POTA1TAB23; +TAMS1CAP17; +TORS20TA2 PO
== END ==
LOC: M WUC 11:45
PROVIDERS: ATTEND Nurse Practitioner Family
DX: R05.9 Cough, unspecified (principal)

== ENCOUNTER → 2025-06-26 | Outpatient (CLI) | payer MEDICARE, MEDICAID ==
[2025-06-26 18:19] LABS: CALCIUM LEVEL 9.8 MG/DL (8.3-10.6); CARBON DIOXIDE LEVEL 26.0 MMOL/L (20-31); CHLORIDE LEVEL 99.0 MMOL/L (98-107); CREATININE FOR GFR 1.89 MG/DL (0.70-1.30); GLOMERULAR FILTRATION RATE 36.6 (>42); POTASSIUM SERUM 4.3 MMOL/L (3.5-5.1); SODIUM LEVEL 137.0 MMOL/L (136-145)
== END ==
LOC: M WUC 14:30
PROVIDERS: ATTEND Nurse Practitioner Family
DX: I50.20 Unspecified systolic (congestive) heart failure (principal)